=== PATIENT | female | born 1955 | race Caucasian/White ===

== ENCOUNTER 2016-09-04 09:55 | Emergency (ER) | payer MEDICARE ==
[~2016-09-04] VITALS: Ht 162.6 cm; Wt 56.6 kg
[2016-09-04 10:01] VITALS: BP 133/92
[2016-09-04] MEDS ORDERED: HYDROmorphone 1 MG/ML, 1ML ONE (10:23)
[2016-09-04] MEDS ORDERED: ONDANSETRON ODT 4 MG ONE (10:23)
[2016-09-04] MEDS ORDERED: HYDROmorphone 1 MG/ML, 1ML IM ONE (10:30)
[2016-09-04] MEDS ORDERED: ONDANSETRON ODT 4 MG PO ONE (10:30)
[2016-09-04] MEDS ORDERED: BACITRACIN ZINC OINT 500U/GM, 0.9 GM ONE (11:32)
== END 2016-09-04 11:48 | disposition home or self-care (01) ==
LOC: ED 11:44
DX: S80.02XA Contusion of left knee, initial encounter (principal); S80.01XA Contusion of right knee, initial encounter; S70.01XA Contusion of right hip, initial encounter; S60.221A Contusion of right hand, initial encounter; J44.9 Chronic obstructive pulmonary disease, unspecified; E78.5 Hyperlipidemia, unspecified; W18.30XA Fall on same level, unspecified, initial encounter; Y93.89 Activity, other specified; Y92.89 Other specified places as the place of occurrence of the external cause; Y99.9 Unspecified external cause status
CPT/HCPCS: 73130; 73502; 73564; 96372; 99284; J1170; Q0162

== ENCOUNTER → 2016-09-04 | Outpatient (CLI) | payer MEDICARE ==
[~2016-09-04] MED LIST: ACET-1757 PO; ACET650S12 PO; ACID1GRA2 PO; ALBU8.5H3 INH; ALEN70TA3 PO; AMIT50TA PO; AMOX-291 PO; AMOX-367 PO; ASPI325T4 PO; ASPI325T80 PO; BISA10SU54 PR; CALC-112 PO; CALC300T5 PO; CEFU500T PO; CYCL-259 PO; DIAZ10TA PO; DOCU-30 PO; ENOX30SY4 SQ; ERGO500017 PO; GABA100C8 PO; HYDR-3138 PO; HYDR-3307 PO; Hydrocodone Bit/Acetaminophen PO; LEVO500T33 PO; LORA-445 PO; LORA-446 PO; MAGN400T26 PO; METR500T4 PO; MORP15TA3 PO; MORP30TA3 PO; MULT-750 PO; NICO1PAT5 TD; OMEP-110 PO; ONDA4TAB7 PO; OXYC10TA6 PO; OXYC5TAB3 PO; PANT40TA3 PO; POLY17PO5 PO; POTA10TA11 PO; PRED10TA PO; SENN1TAB7 PO; THIA100T6 PO; TRAM-28 PO; TRAZ100T15 PO; VENL75CA PO
== END | disposition home or self-care (01) ==
LOC: CFH 08:23
PROVIDERS: ATTEND Nurse Practitioner
DX: Z12.31 Encounter for screening mammogram for malignant neoplasm of breast (principal); M81.0 Age-related osteoporosis without current pathological fracture
CPT/HCPCS: 77080; G0202

== ENCOUNTER 2016-10-21 13:29 | Emergency (ER) | payer MEDICARE, OTHER ==
[~2016-10-21] VITALS: Ht 160 cm; Wt 57.0 kg
[~2016-10-21 13:29] MED LIST changes: +GABA-826 PO; -GABA100C8 PO
[2016-10-21 13:31] VITALS: BP 132/92
[2016-10-21] MEDS ORDERED: OXYcodone/APAP 5/325MG TABLET PO ONE (14:00)
[2016-10-21] MEDS ORDERED: BACITRACIN ZINC OINT 500U/GM, 0.9 GM ONE (14:03)
[2016-10-21] MEDS ORDERED: OXYcodone/APAP 5/325MG TABLET ONE (14:03)
== END 2016-10-21 15:11 | disposition home or self-care (01) ==
LOC: ED 15:05
DX: S82.54XA Nondisplaced fracture of medial malleolus of right tibia, initial encounter for closed fracture (principal); X58.XXXA Exposure to other specified factors, initial encounter; Y93.89 Activity, other specified; Y92.89 Other specified places as the place of occurrence of the external cause; Y99.8 Other external cause status
CPT/HCPCS: 29515

== ENCOUNTER 2016-10-22 00:49 | Emergency (ER) | payer MEDICARE, OTHER ==
[~2016-10-22] VITALS: Ht 162.6 cm; Wt 25.6 kg
[2016-10-22 00:50] VITALS: BP 127/86
== END 2016-10-22 02:19 | disposition home or self-care (01) ==
LOC: ED 02:07
DX: S50.01XA Contusion of right elbow, initial encounter (principal); S90.32XA Contusion of left foot, initial encounter; S90.02XA Contusion of left ankle, initial encounter; F11.10 Opioid abuse, uncomplicated; V09.9XXA Pedestrian injured in unspecified transport accident, initial encounter; Y93.89 Activity, other specified; Y92.89 Other specified places as the place of occurrence of the external cause; Y99.8 Other external cause status
CPT/HCPCS: 99284

== ENCOUNTER 2016-12-23 10:35 | Emergency (ER) | payer MEDICARE ==
[~2016-12-23] VITALS: Ht 162.6 cm; Wt 55.7 kg
[2016-12-23] MEDS ORDERED: SODIUM CHLORIDE 0.9% 1,000 ML IV ONE (10:58)
[2016-12-23] MEDS ORDERED: SODIUM CHLORIDE 0.9% 1,000ML IVBOLUS ONE (11:00)
[2016-12-23 11:35] LABS: HEMATOCRIT 52.5 % (34.6-47.8); HEMOGLOBIN 17.3 g/dL (11.7-16.4); WHITE BLOOD COUNT 11.8 x10^3/uL (3.4-10)
[2016-12-23 11:47] LABS: BLOOD UREA NITROGEN 10 mg/dL (7-18)
[2016-12-23 11:50] LABS: ASPARTATE AMINO TRANSFERASE 25 U/L (15-37)
[2016-12-23] MEDS ORDERED: OMNIPAQUE 350 MG/ML, 100ML BOTTLE ONE (12:55)
[2016-12-23] MEDS ORDERED: HYDROmorphone 1 MG/ML, 1ML IVPush PRN (13:00)
[2016-12-23] MEDS ORDERED: ONDANSETRON 2MG/ML, 2ML IVPush ONE (13:00)
[2016-12-23] MEDS ORDERED: HYDROmorphone 1 MG/ML, 1ML ONE (13:16)
[2016-12-23] MEDS ORDERED: ONDANSETRON 2MG/ML, 2ML ONE (13:16)
[2016-12-23 15:00] VITALS: BP 162/74
== END 2016-12-23 15:18 | disposition home or self-care (01) ==
LOC: ED 12:52
DX: R19.7 Diarrhea, unspecified (principal); J44.9 Chronic obstructive pulmonary disease, unspecified; E78.5 Hyperlipidemia, unspecified; F10.20 Alcohol dependence, uncomplicated
CPT/HCPCS: 36415; 71010; 74177; 80053; 83690; 85025; 87081; 87880; 96361; 96374; 96375; 99285; J1170; J2405; J7030; Q9967

== ENCOUNTER 2017-01-23 21:17 | Emergency (ER) | payer MEDICARE ==
[~2017-01-23] VITALS: Ht 160 cm; Wt 55.9 kg
[~2017-01-23 21:17] MED LIST changes: -ACID1GRA2 PO; +ACID1GRA3 PO; -ALBU8.5H3 INH; +ALBU8.5H8 INH; +ASPI325T17 PO; -ASPI325T4 PO; +DOCU-131 PO; -DOCU-30 PO; -HYDR-3138 PO; +HYDR-3237 PO; -LEVO500T33 PO; +LEVO500T47 PO; -METR500T4 PO; +METR500T8 PO; +NICO1PAT16 TD; -NICO1PAT5 TD; -TRAM-28 PO; +TRAM-47 PO
[2017-01-23] MEDS ORDERED: PANTOPRAZOLE 40 MG IV IVPush ONE (22:00)
[2017-01-23] MEDS ORDERED: ONDANSETRON 2MG/ML, 2ML IVPush ONE (22:00)
[2017-01-23] MEDS ORDERED: SODIUM CHLORIDE 0.9% 1,000ML IVBOLUS ONE (22:00)
[2017-01-23] MEDS ORDERED: SODIUM CHLORIDE FLUSH 10ML SYR IVF ONE (22:00)
[2017-01-23] MEDS ORDERED: MORPHINE SULFATE 4 MG/ML, 1ML IVPush PRN (22:00)
[2017-01-23] MEDS ORDERED: ONDANSETRON 2MG/ML, 2ML ONE (22:02)
[2017-01-23] MEDS ORDERED: MORPHINE SULFATE 4 MG/ML, 1ML ONE (22:02)
[2017-01-23 22:09] LABS: HEMATOCRIT 59.9 % (34.6-47.8); HEMOGLOBIN 20.1 g/dL (11.7-16.4); WHITE BLOOD COUNT 10.1 x10^3/uL (3.4-10)
[2017-01-23] MEDS ORDERED: PANTOPRAZOLE 40 MG IV ONE (22:18)
[2017-01-23 22:21] LABS: ASPARTATE AMINO TRANSFERASE 21 U/L (15-37); BLOOD UREA NITROGEN 11 mg/dL (7-18)
[2017-01-23 23:12] VITALS: BP 145/102
[2017-01-23 23:28] LABS: PATH.CAST-FLAG NOT PRESENT; SPERM-FLAG NOT PRESENT; SRC-FLAG NOT PRESENT; XTAL-FLAG NOT PRESENT; YLC-FLAG NOT PRESENT
== END 2017-01-24 00:32 | disposition home or self-care (01) ==
LOC: ED 22:13
DX: K29.20 Alcoholic gastritis without bleeding (principal); N30.01 Acute cystitis with hematuria; K62.5 Hemorrhage of anus and rectum; J44.9 Chronic obstructive pulmonary disease, unspecified; E78.5 Hyperlipidemia, unspecified
CPT/HCPCS: 36415; 80053; 80307; 81001; 83690; 85025; 85610; 85730; 86677; 86850; 86900; 87086; 96361; 96374; 96375; 99284; C9113; J2405; J7030; G0479

== ENCOUNTER 2017-02-19 01:27 | Emergency (ER) | payer MEDICARE ==
[~2017-02-19] VITALS: Ht 162.6 cm; Wt 56.8 kg
[~2017-02-19 01:27] MED LIST changes: +NICO-487 TD; -NICO1PAT16 TD
[2017-02-19 01:28] VITALS: BP 110/79
[2017-02-19] MEDS ORDERED: SODIUM CHLORIDE 0.9% 1,000ML IVBOLUS ONE (02:00)
[2017-02-19] MEDS ORDERED: ONDANSETRON 2MG/ML, 2ML IVPush ONE (02:00)
[2017-02-19] MEDS ORDERED: MAALOX/HYOSCYAMINE/LIDOCAINE 45 ML BTL PO ONE (02:00)
[2017-02-19] MEDS ORDERED: FAMOTIDINE 20 MG/2 ML IVP ONE (02:00)
[2017-02-19] MEDS ORDERED: SODIUM CHLORIDE FLUSH 10ML SYR IVF ONE (02:00)
[2017-02-19 02:12] LABS: HEMATOCRIT 47.9 % (34.6-47.8); HEMOGLOBIN 16.3 g/dL (11.7-16.4); WHITE BLOOD COUNT 10.1 x10^3/uL (3.4-10)
[2017-02-19 02:22] LABS: BLOOD UREA NITROGEN 8 mg/dL (7-18)
[2017-02-19] MEDS ORDERED: ACETAMINOPHEN 325 MG TABLET PO ONE (03:00)
== END 2017-02-19 03:05 | disposition left against medical advice (07) ==
LOC: ED 02:48
DX: M25.512 Pain in left shoulder (principal); R19.7 Diarrhea, unspecified; F10.229 Alcohol dependence with intoxication, unspecified; J44.9 Chronic obstructive pulmonary disease, unspecified; E78.5 Hyperlipidemia, unspecified; Z88.8 Allergy status to other drugs, medicaments and biological substances
CPT/HCPCS: 36415; 80048; 80307; 85025; 99285; G0479

== ENCOUNTER 2017-05-01 14:42 | Emergency (ER) | payer MEDICARE ==
[~2017-05-01] VITALS: Ht 162.6 cm; Wt 57.7 kg
[2017-05-01 17:32] LABS: MICROSCOPIC AUTO
[2017-05-01 17:36] LABS: CULTURE INDICATED? YES
[2017-05-01 17:42] LABS: BASOPHILS # (AUTO) 0.06 x10^3/uL (0-0.1); BASOPHILS % (AUTO) 1 % (0-1); EOSINOPHILS # (AUTO) 0.31 x10^3/uL (0-0.4); EOSINOPHILS % (AUTO) 3 % (1-7); LYMPHOCYTES # (AUTO) 2.82 x10^3/uL (1-3.4); LYMPHOCYTES % (AUTO) 29 % (22-44); MD NO; MEAN CORPUSCULAR HEMOGLOBIN 31.5 pg (27.0-34.8); MEAN CORPUSCULAR HGB CONC 33.5 g/dL (32.4-35.8); MEAN PLATELET VOLUME 8.4 fL (7.4-10.4); MONOCYTES # (AUTO) 0.76 x10^3/uL (0.2-0.8); MONOCYTES % (AUTO) 8 % (2-9); NEUTROPHILS # (AUTO) 5.71 x10^3/uL (1.8-6.8); NEUTROPHILS % (AUTO) 59 % (42-75); PLATELET COUNT 330 x10^3/uL (130-400); RED BLOOD COUNT 5.24 x10^6/uL (3.82-5.3); RED CELL DISTRIBUTION WIDTH 15.2 % (9.6-15.2)
[2017-05-01 17:51] LABS: ALANINE AMINOTRANSFERASE 22 U/L (12-78); ALBUMIN 3.8 g/dL (3.4-5.0); ANION GAP 7 mmol/L (5-15); CHLORIDE 106 mmol/L (98-107); CREATININE 0.72 mg/dL (0.55-1.02)
[2017-05-01 17:53] LABS: ALKALINE PHOSPHATASE 95 U/L (45-117); BILIRUBIN,TOTAL 0.4 mg/dL (0.2-1.0); TOTAL PROTEIN 8.2 g/dL (6.4-8.2)
[2017-05-01 18:13] VITALS: BP 161/85
== END 2017-05-01 18:33 | disposition home or self-care (01) ==
LOC: ED 16:45
DX: B37.2 Candidiasis of skin and nail (principal); L30.9 Dermatitis, unspecified; N30.00 Acute cystitis without hematuria; E78.5 Hyperlipidemia, unspecified; J44.9 Chronic obstructive pulmonary disease, unspecified; M81.0 Age-related osteoporosis without current pathological fracture; F17.210 Nicotine dependence, cigarettes, uncomplicated
CPT/HCPCS: 36415; 80053; 81001; 85025; 87086; 99284

== ENCOUNTER 2017-06-03 10:43 | Emergency (ER) | payer MEDICARE ==
[~2017-06-03] VITALS: Ht 162.6 cm; Wt 52.0 kg
[2017-06-03] MEDS ORDERED: HYDR-3245 PO (11:40)
[2017-06-03] MEDS ORDERED: POTA99TA8 PO (11:40)
[2017-06-03] MEDS ORDERED: BIOT5TAB PO (11:40)
[2017-06-03] MEDS ORDERED: PANT40TA3 PO (11:40)
[2017-06-03] MEDS ORDERED: CALC-451 PO (11:40)
[2017-06-03] MEDS ORDERED: ASCO100019 PO (11:40)
[2017-06-03] MEDS ORDERED: GABA300C10 PO (11:40)
[2017-06-03] MEDS ORDERED: ALBUTEROL/IPRATROPIUM 2.5MG/0.5MG, 3 ML ONE ×2 (11:52→13:42)
[2017-06-03] MEDS ORDERED: ALBUTEROL/IPRATROPIUM 2.5MG/0.5MG, 3 ML NPPB ONE ×2 (12:00→13:30)
[2017-06-03] MEDS ORDERED: SODIUM CHLORIDE FLUSH 10ML SYR IVF ONE (12:00)
[2017-06-03] MEDS ORDERED: SODIUM CHLORIDE 0.9% 1,000ML IVBOLUS ONE (12:00)
[2017-06-03] MEDS ORDERED: methylPREDNISolone SOD SUCC 125 MG/2 ML IVP ONE (12:00)
[2017-06-03] MEDS ORDERED: LORazepam 2 MG/ML, 1ML IVPush ONE (12:00)
[2017-06-03] MEDS ORDERED: LORazepam 2 MG/ML, 1ML ONE (12:09)
[2017-06-03] MEDS ORDERED: methylPREDNISolone SOD SUCC 125 MG/2 ML ONE (12:09)
[2017-06-03 12:17] LABS: BASOPHILS # (AUTO) 0.07 x10^3/uL (0-0.1); BASOPHILS % (AUTO) 1 % (0-1); EOSINOPHILS # (AUTO) 0.29 x10^3/uL (0-0.4); EOSINOPHILS % (AUTO) 3 % (1-7); LYMPHOCYTES # (AUTO) 2.15 x10^3/uL (1-3.4); LYMPHOCYTES % (AUTO) 24 % (22-44); MD NO; MEAN CORPUSCULAR HEMOGLOBIN 31.9 pg (27.0-34.8); MEAN CORPUSCULAR HGB CONC 33.9 g/dL (32.4-35.8); MONOCYTES # (AUTO) 0.78 x10^3/uL (0.2-0.8); MONOCYTES % (AUTO) 9 % (2-9); NEUTROPHILS # (AUTO) 5.79 x10^3/uL (1.8-6.8); NEUTROPHILS % (AUTO) 64 % (42-75); PLATELET COUNT 334 x10^3/uL (130-400); RED BLOOD COUNT 4.94 x10^6/uL (3.82-5.3); RED CELL DISTRIBUTION WIDTH 15.7 % (9.6-15.2)
[2017-06-03 12:26] LABS: ALBUMIN 3.7 g/dL (3.4-5.0); ANION GAP 8 mmol/L (5-15); CALCIUM 9.4 mg/dL (8.5-10.1); CHLORIDE 107 mmol/L (98-107); CREATININE 0.75 mg/dL (0.55-1.02)
[2017-06-03] MEDS ORDERED: KETOROLAC 30 MG/1 ML ONE (13:23)
[2017-06-03] MEDS ORDERED: KETOROLAC 30 MG/1 ML IVPush ONE (13:30)
[2017-06-03 14:50] VITALS: BP 115/76
== END 2017-06-03 14:54 | disposition home or self-care (01) ==
LOC: ED 11:39
DX: J44.1 Chronic obstructive pulmonary disease with (acute) exacerbation (principal); E78.5 Hyperlipidemia, unspecified; F10.20 Alcohol dependence, uncomplicated
CPT/HCPCS: 36415; 71046; 80048; 82040; 85025; 93005; 94640; 96361; 96374; 96375; 99285; J1885; J2060; J2930; J7030; J7620

== ENCOUNTER → 2017-07-23 | Outpatient (CLI) | payer MEDICARE ==
[~2017-07-23] MED LIST changes: +AMIT75TA PO; +ASCO100019 PO; +BIOT5TAB PO; +CALC-451 PO; +GABA300C10 PO; +HYDR-3245 PO; +POTA99TA8 PO
== END | disposition home or self-care (01) ==
LOC: RAD 16:34
PROVIDERS: ATTEND Nurse Practitioner Family
DX: R06.02 Shortness of breath (principal); R09.02 Hypoxemia; R07.9 Chest pain, unspecified; F41.9 Anxiety disorder, unspecified; R22.43 Localized swelling, mass and lump, lower limb, bilateral; R63.5 Abnormal weight gain
CPT/HCPCS: 71046

== ENCOUNTER 2017-10-20 13:45 | Emergency (ER) | payer MEDICARE, OTHER ==
[~2017-10-20] VITALS: Ht 162.6 cm; Wt 59.3 kg
[2017-10-20] MEDS ORDERED: morphine SULFATE 10 MG/ML, 1ML IVPush ONE (15:00)
[2017-10-20 15:06] LABS: BASOPHILS # (AUTO) 0.05 x10^3/uL (0-0.1); BASOPHILS % (AUTO) 1 % (0-1); EOSINOPHILS # (AUTO) 0.26 x10^3/uL (0-0.4); EOSINOPHILS % (AUTO) 3 % (1-7); LYMPHOCYTES # (AUTO) 1.32 x10^3/uL (1-3.4); LYMPHOCYTES % (AUTO) 16 % (22-44); MD NO; MEAN CORPUSCULAR HEMOGLOBIN 33.4 pg (27.0-34.8); MEAN CORPUSCULAR VOLUME 98.2 fL (80-100); MEAN PLATELET VOLUME 7.9 fL (7.4-10.4); MONOCYTES # (AUTO) 0.65 x10^3/uL (0.2-0.8); MONOCYTES % (AUTO) 8 % (2-9); NEUTROPHILS # (AUTO) 5.94 x10^3/uL (1.8-6.8); NEUTROPHILS % (AUTO) 72 % (42-75); PLATELET COUNT 294 x10^3/uL (130-400); RED BLOOD COUNT 4.87 x10^6/uL (3.82-5.3); RED CELL DISTRIBUTION WIDTH 16.3 % (9.6-15.2)
[2017-10-20 15:15] LABS: ALBUMIN 3.4 g/dL (3.4-5.0); ANION GAP 7 mmol/L (5-15); CALCIUM 9.1 mg/dL (8.5-10.1); CHLORIDE 107 mmol/L (98-107); CREATININE 0.67 mg/dL (0.55-1.02)
[2017-10-20 15:22] LABS: PROTHROMBIN TIME 10.3 Seconds (9.6-11.5)
[2017-10-20] MEDS ORDERED: MORPHINE SULFATE 4 MG/ML, 1ML ONE (15:31)
[2017-10-20] MEDS ORDERED: DIPHENHYDRAMINE 25 MG CAPSULE ONE (15:59)
[2017-10-20] MEDS ORDERED: DIPHENHYDRAMINE 25 MG CAPSULE PO ONE (16:30)
[2017-10-20 16:55] VITALS: BP 130/79
== END 2017-10-20 17:05 | disposition home or self-care (01) ==
LOC: ED 15:28
DX: L03.116 Cellulitis of left lower limb (principal); L40.1 Generalized pustular psoriasis; J44.9 Chronic obstructive pulmonary disease, unspecified
CPT/HCPCS: 36415; 80048; 82040; 85025; 85610; 93971; 96374; 99285; J2270; Q0163

== ENCOUNTER 2018-01-25 14:24 | Emergency (ER) | payer MEDICARE, OTHER ==
[~2018-01-25] VITALS: Ht 160 cm; Wt 56.8 kg
[~2018-01-25 14:24] MED LIST changes: -SENN1TAB7 PO; +SENN1TAB8 PO; -THIA100T6 PO; +THIA100T67 PO; +TRAZ-137 PO; -TRAZ100T15 PO
[2018-01-25] MEDS ORDERED: LORazepam 1MG TABLET ONE (15:08)
[2018-01-25 15:24] LABS: BASOPHILS # (AUTO) 0.07 x10^3/uL (0-0.1); BASOPHILS % (AUTO) 1 % (0-1); EOSINOPHILS # (AUTO) 0.05 x10^3/uL (0-0.4); EOSINOPHILS % (AUTO) 1 % (1-7); LYMPHOCYTES # (AUTO) 2.16 x10^3/uL (1-3.4); LYMPHOCYTES % (AUTO) 25 % (22-44); MD NO; MEAN CORPUSCULAR HEMOGLOBIN 32.8 pg (27.0-34.8); MEAN CORPUSCULAR HGB CONC 33.8 g/dL (32.4-35.8); MEAN CORPUSCULAR VOLUME 97.1 fL (80-100); MONOCYTES # (AUTO) 0.99 x10^3/uL (0.2-0.8); MONOCYTES % (AUTO) 11 % (2-9); NEUTROPHILS # (AUTO) 5.39 x10^3/uL (1.8-6.8); NEUTROPHILS % (AUTO) 62 % (42-75); PLATELET COUNT 326 x10^3/uL (130-400); RED BLOOD COUNT 4.81 x10^6/uL (3.82-5.3)
[2018-01-25] MEDS ORDERED: SODIUM CHLORIDE FLUSH 10ML SYR IVF ONE (15:30)
[2018-01-25] MEDS ORDERED: LORazepam 1MG TABLET PO ONE (15:30)
[2018-01-25] MEDS ORDERED: SODIUM CHLORIDE 0.9% 1,000ML IVBOLUS ONE (15:30)
[2018-01-25 15:33] LABS: ALANINE AMINOTRANSFERASE 20 U/L (12-78); ALBUMIN 3.8 g/dL (3.4-5.0); ANION GAP 13 mmol/L (5-15); CALCIUM 8.7 mg/dL (8.5-10.1); CHLORIDE 97 mmol/L (98-107); CREATININE 0.68 mg/dL (0.55-1.02)
[2018-01-25 15:35] LABS: ALKALINE PHOSPHATASE 116 U/L (45-117); BILIRUBIN,TOTAL 0.6 mg/dL (0.2-1.0)
[2018-01-25 16:31] VITALS: BP 115/96
== END 2018-01-25 16:53 | disposition home or self-care (01) ==
LOC: ED 16:17
DX: F41.1 Generalized anxiety disorder (principal); M16.11 Unilateral primary osteoarthritis, right hip; F17.210 Nicotine dependence, cigarettes, uncomplicated; F10.20 Alcohol dependence, uncomplicated; J44.9 Chronic obstructive pulmonary disease, unspecified; M81.0 Age-related osteoporosis without current pathological fracture; L40.9 Psoriasis, unspecified; E78.5 Hyperlipidemia, unspecified; R41.3 Other amnesia; R21 Rash and other nonspecific skin eruption; Z79.899 Other long term (current) drug therapy
CPT/HCPCS: 36415; 73502; 80053; 80307; 85025; 93005; 99285; J7030

== ENCOUNTER 2018-01-31 09:53 | Inpatient (IN) | payer MEDICARE, OTHER ==
[~2018-01-31] VITALS: Ht 160 cm; Wt 64.9 kg
[2018-01-31] MEDS ORDERED: SODIUM CHLORIDE 0.9% 1,000 ML IV ONE (11:07)
[2018-01-31] MEDS ORDERED: MORPHINE SULFATE 4 MG/ML, 1ML IVPush ONE ×2 (11:30→13:30)
[2018-01-31] MEDS ORDERED: methylPREDNISolone SOD SUCC 125 MG/2 ML IVPush ONE (11:30)
[2018-01-31] MEDS ORDERED: VANCOMYCIN PER PHARMACY IV ONE (11:30)
[2018-01-31] MEDS ORDERED: AMPICILLIN/SULBACTAM 3 GM in SODIUM CHLORIDE 0.9% 100 ML IV ONE (11:30)
[2018-01-31] MEDS ORDERED: methylPREDNISolone SOD SUCC 125 MG/2 ML ONE (11:32)
[2018-01-31] MEDS ORDERED: MORPHINE SULFATE 4 MG/ML, 1ML ONE ×2 (11:32→13:29)
[2018-01-31] MEDS ORDERED: VANCOMYCIN 1,100 MG in SODIUM CHLORIDE 0.9% 250 ML IV ONE (12:00)
[2018-01-31 12:01] LABS: HCT (SEDRATE) 44.4 % (34.6-47.8)
[2018-01-31 12:04] LABS: BASOPHILS # (AUTO) 0.13 x10^3/uL (0-0.1); BASOPHILS % (AUTO) 1 % (0-1); EOSINOPHILS # (AUTO) 0.39 x10^3/uL (0-0.4); EOSINOPHILS % (AUTO) 3 % (1-7); LYMPHOCYTES # (AUTO) 1.91 x10^3/uL (1-3.4); LYMPHOCYTES % (AUTO) 14 % (22-44); MD NO; MEAN CORPUSCULAR HEMOGLOBIN 33.3 pg (27.0-34.8); MEAN CORPUSCULAR HGB CONC 33.4 g/dL (32.4-35.8); MEAN CORPUSCULAR VOLUME 99.9 fL (80-100); MEAN PLATELET VOLUME 8.9 fL (7.4-10.4); MONOCYTES # (AUTO) 1.01 x10^3/uL (0.2-0.8); MONOCYTES % (AUTO) 7 % (2-9); NEUTROPHILS # (AUTO) 10.66 x10^3/uL (1.8-6.8); NEUTROPHILS % (AUTO) 76 % (42-75); PLATELET COUNT 280 x10^3/uL (130-400); RED BLOOD COUNT 4.45 x10^6/uL (3.82-5.3); RED CELL DISTRIBUTION WIDTH 14.8 % (9.6-15.2)
[2018-01-31 12:06] LABS: ALANINE AMINOTRANSFERASE 21 U/L (12-78); ALBUMIN 3.6 g/dL (3.4-5.0); CHLORIDE 103 mmol/L (98-107); CREATININE 0.55 mg/dL (0.55-1.02)
[2018-01-31 12:55] LABS: ANION GAP 10 mmol/L (5-15); CALCIUM 8.9 mg/dL (8.5-10.1)
[2018-01-31 13:04] LABS: ALKALINE PHOSPHATASE 118 U/L (45-117); BILIRUBIN,TOTAL 0.4 mg/dL (0.2-1.0)
[2018-01-31] MEDS ORDERED: ACETAMINOPHEN 325 MG TABLET PO PRN (14:30)
[2018-01-31] MEDS ORDERED: ONDANSETRON 2MG/ML, 2ML IVPush PRN (14:30)
[2018-01-31] MEDS: HEPARIN 5,000 UNITS/ML, 1ML SQ SCH ×2 (15:00→23:00)
[2018-01-31] MEDS ORDERED: SODIUM CHLORIDE 0.9% 1,000 ML IV SCH (15:00)
[2018-01-31 15:08] VITALS: BP 131/85
[2018-01-31] MEDS: DOXYCYCLINE 100 MG in DEXTROSE 5% 250 ML IV SCH (15:39)
[2018-01-31] MEDS: HYDROcodone/APAP 5/325 TABLET PO PRN ×2 (15:40→20:08)
[2018-01-31] MEDS: NICOTINE 7 MG/24 HR PATCH.TD24 TD SCH (15:40)
[2018-01-31] MEDS: morphine SULFATE 10 MG/ML, 1ML IVPush PRN (17:14)
[2018-01-31] MEDS: AMPICILLIN/SULBACTAM 1,500 MG in SODIUM CHLORIDE 0.9% 50 ML IV SCH ×2 (17:19→23:37)
[2018-01-31] MEDS: INSULIN LISPRO 100 UNITS/ML, PEN SQ-INSULIN SCH ×2 (17:19→21:05)
[2018-01-31 19:23] VITALS: BP 135/81
[2018-01-31] MEDS: methylPREDNISolone SOD SUCC 125 MG/2 ML IVPush SCH (20:08)
[2018-02-01 01:25] VITALS: BP 150/89
[2018-02-01] MEDS: morphine SULFATE 10 MG/ML, 1ML IVPush PRN ×6 (02:05→21:07)
[2018-02-01] MEDS: HYDROcodone/APAP 5/325 TABLET PO PRN ×3 (02:05→16:36)
[2018-02-01] MEDS: methylPREDNISolone SOD SUCC 125 MG/2 ML IVPush SCH ×4 (03:06→21:07)
[2018-02-01] MEDS: DOXYCYCLINE 100 MG in DEXTROSE 5% 250 ML IV SCH ×2 (03:06→16:35)
[2018-02-01 04:50] LABS: BASOPHILS % (AUTO) 0 % (0-1); EOSINOPHILS % (AUTO) 0 % (1-7); LYMPHOCYTES # (AUTO) 0.65 x10^3/uL (1-3.4); LYMPHOCYTES % (AUTO) 10 % (22-44); MD NO; MEAN CORPUSCULAR HEMOGLOBIN 32.7 pg (27.0-34.8); MEAN CORPUSCULAR VOLUME 99.1 fL (80-100); MEAN PLATELET VOLUME 8.9 fL (7.4-10.4); MONOCYTES # (AUTO) 0.07 x10^3/uL (0.2-0.8); MONOCYTES % (AUTO) 1 % (2-9); NEUTROPHILS # (AUTO) 5.54 x10^3/uL (1.8-6.8); NEUTROPHILS % (AUTO) 88 % (42-75); PLATELET COUNT 238 x10^3/uL (130-400); RED BLOOD COUNT 4.08 x10^6/uL (3.82-5.3)
[2018-02-01 04:59] LABS: ALANINE AMINOTRANSFERASE 16 U/L (12-78); ALBUMIN 2.7 g/dL (3.4-5.0); ANION GAP 11 mmol/L (5-15); CALCIUM 8.1 mg/dL (8.5-10.1); CHLORIDE 108 mmol/L (98-107); CREATININE 0.61 mg/dL (0.55-1.02)
[2018-02-01 05:01] LABS: ALKALINE PHOSPHATASE 95 U/L (45-117); BILIRUBIN,TOTAL 0.2 mg/dL (0.2-1.0); TOTAL PROTEIN 6.7 g/dL (6.4-8.2)
[2018-02-01] MEDS: AMPICILLIN/SULBACTAM 1,500 MG in SODIUM CHLORIDE 0.9% 50 ML IV SCH ×4 (05:39→23:50)
[2018-02-01] MEDS: INSULIN LISPRO 100 UNITS/ML, PEN SQ-INSULIN SCH ×4 (07:00→21:00)
[2018-02-01] MEDS: HEPARIN 5,000 UNITS/ML, 1ML SQ SCH ×3 (07:00→23:00)
[2018-02-01 08:08] VITALS: BP 169/102
[2018-02-01 13:10] VITALS: BP 142/90
[2018-02-01] MEDS ORDERED: SODIUM CHLORIDE 0.9% 1,000 ML IV SCH (15:00)
[2018-02-01] MEDS: NICOTINE 7 MG/24 HR PATCH.TD24 TD SCH (16:36)
[2018-02-01 20:00] VITALS: BP 166/88
[2018-02-01 23:50] VITALS: BP 180/87
[2018-02-01] MEDS: LABETALOL 5MG/ML, 20ML IVPush PRN (23:57)
[2018-02-02] VITALS (8 sets, daily range): BP systolic 137–196; BP diastolic 84–107
[2018-02-02] MEDS: morphine SULFATE 10 MG/ML, 1ML IVPush PRN ×5 (00:29→20:18)
[2018-02-02] MEDS: methylPREDNISolone SOD SUCC 125 MG/2 ML IVPush SCH ×3 (02:59→20:18)
[2018-02-02] MEDS: DOXYCYCLINE 100 MG in DEXTROSE 5% 250 ML IV SCH (04:17)
[2018-02-02] MEDS: LABETALOL 5MG/ML, 20ML IVPush PRN ×2 (05:41→20:19)
[2018-02-02 05:46] LABS: BASOPHILS # (AUTO) 0.01 x10^3/uL (0-0.1); BASOPHILS % (AUTO) 0 % (0-1); EOSINOPHILS % (AUTO) 0 % (1-7); LYMPHOCYTES # (AUTO) 0.59 x10^3/uL (1-3.4); LYMPHOCYTES % (AUTO) 6 % (22-44); MD NO; MEAN CORPUSCULAR HEMOGLOBIN 32.7 pg (27.0-34.8); MEAN CORPUSCULAR HGB CONC 32.9 g/dL (32.4-35.8); MEAN CORPUSCULAR VOLUME 99.1 fL (80-100); MEAN PLATELET VOLUME 9.2 fL (7.4-10.4); MONOCYTES # (AUTO) 0.33 x10^3/uL (0.2-0.8); MONOCYTES % (AUTO) 3 % (2-9); NEUTROPHILS # (AUTO) 8.78 x10^3/uL (1.8-6.8); NEUTROPHILS % (AUTO) 90 % (42-75); PLATELET COUNT 301 x10^3/uL (130-400); RED BLOOD COUNT 4.15 x10^6/uL (3.82-5.3); RED CELL DISTRIBUTION WIDTH 15.4 % (9.6-15.2)
[2018-02-02 05:48] LABS: ALANINE AMINOTRANSFERASE 18 U/L (12-78); ANION GAP 11 mmol/L (5-15); CALCIUM 8.3 mg/dL (8.5-10.1); CHLORIDE 106 mmol/L (98-107); CREATININE 0.69 mg/dL (0.55-1.02)
[2018-02-02 05:50] LABS: ALKALINE PHOSPHATASE 87 U/L (45-117); BILIRUBIN,TOTAL 0.2 mg/dL (0.2-1.0)
[2018-02-02] MEDS: AUGMENTIN MC SCH ×3 (07:00→23:00)
[2018-02-02] MEDS: HEPARIN 5,000 UNITS/ML, 1ML SQ SCH ×3 (07:00→23:00)
[2018-02-02] MEDS: DOXY MC SCH ×3 (07:00→23:00)
[2018-02-02] MEDS: INSULIN LISPRO 100 UNITS/ML, PEN SQ-INSULIN SCH ×4 (08:08→20:19)
[2018-02-02] MEDS: POTASSIUM CHLORIDE 20 MEQ TAB.ER.PRT PO SCH ×3 (08:17→20:18)
[2018-02-02] MEDS: AMOXICILLIN/CLAV 875-125MG TABLET PO SCH ×2 (08:17→20:18)
[2018-02-02] MEDS: HYDROcodone/APAP 5/325 TABLET PO PRN ×2 (08:17→17:20)
[2018-02-02] MEDS: DOXYCYCLINE 100MG TABLET PO SCH ×2 (08:18→20:19)
[2018-02-02 08:38] LABS: HEMOGLOBIN A1C 5.1 % (4.2-6.3)
[2018-02-02] MEDS: NICOTINE 7 MG/24 HR PATCH.TD24 TD SCH (15:34)
[2018-02-02 17:35] LABS: ANION GAP 8 mmol/L (5-15); CHLORIDE 106 mmol/L (98-107)
[2018-02-02 17:37] LABS: CREATININE 0.69 mg/dL (0.55-1.02)
[2018-02-02] MEDS: hydrALAzine 20 MG/ML, 1ML IV PRN (21:05)
[2018-02-03] MEDS: morphine SULFATE 10 MG/ML, 1ML IVPush PRN ×5 (01:27→20:30)
[2018-02-03 03:16] VITALS: BP_SYST 174; BP_SYST 179; BP_DIAS 92; BP_DIAS 95
[2018-02-03 05:43] LABS: BASOPHILS # (AUTO) 0.01 x10^3/uL (0-0.1); BASOPHILS % (AUTO) 0 % (0-1); EOSINOPHILS % (AUTO) 0 % (1-7); LYMPHOCYTES # (AUTO) 0.72 x10^3/uL (1-3.4); LYMPHOCYTES % (AUTO) 7 % (22-44); MD NO; MEAN CORPUSCULAR HGB CONC 33.5 g/dL (32.4-35.8); MEAN CORPUSCULAR VOLUME 98.5 fL (80-100); MEAN PLATELET VOLUME 8.7 fL (7.4-10.4); MONOCYTES # (AUTO) 0.63 x10^3/uL (0.2-0.8); MONOCYTES % (AUTO) 6 % (2-9); NEUTROPHILS # (AUTO) 8.61 x10^3/uL (1.8-6.8); NEUTROPHILS % (AUTO) 86 % (42-75); PLATELET COUNT 340 x10^3/uL (130-400); RED BLOOD COUNT 4.61 x10^6/uL (3.82-5.3); RED CELL DISTRIBUTION WIDTH 15.7 % (9.6-15.2)
[2018-02-03 05:52] LABS: ALBUMIN 3.3 g/dL (3.4-5.0); ANION GAP 7 mmol/L (5-15); CALCIUM 9.4 mg/dL (8.5-10.1); CHLORIDE 105 mmol/L (98-107)
[2018-02-03 05:57] LABS: ALANINE AMINOTRANSFERASE 24 U/L (12-78); ALKALINE PHOSPHATASE 93 U/L (45-117); BILIRUBIN,TOTAL 0.2 mg/dL (0.2-1.0); CREATININE 0.59 mg/dL (0.55-1.02)
[2018-02-03] MEDS: INSULIN LISPRO 100 UNITS/ML, PEN SQ-INSULIN SCH ×3 (07:00→16:00)
[2018-02-03] MEDS: AUGMENTIN MC SCH ×3 (07:00→22:29)
[2018-02-03] MEDS: DOXY MC SCH ×3 (07:00→22:29)
[2018-02-03] MEDS: HEPARIN 5,000 UNITS/ML, 1ML SQ SCH ×3 (07:00→20:17)
[2018-02-03 07:22] VITALS: BP 182/108
[2018-02-03] MEDS: AMOXICILLIN/CLAV 875-125MG TABLET PO SCH (08:15)
[2018-02-03] MEDS: hydrALAzine 20 MG/ML, 1ML IV PRN (08:16)
[2018-02-03] MEDS: POTASSIUM CHLORIDE 20 MEQ TAB.ER.PRT PO SCH ×3 (08:16→20:28)
[2018-02-03] MEDS: methylPREDNISolone SOD SUCC 125 MG/2 ML IVPush SCH (08:16)
[2018-02-03] MEDS: HYDROcodone/APAP 5/325 TABLET PO PRN (08:16)
[2018-02-03] MEDS: DOXYCYCLINE 100MG TABLET PO SCH ×2 (08:17→20:28)
[2018-02-03 09:12] VITALS: BP 143/88
[2018-02-03] MEDS: GABAPENTIN 300 MG CAPSULE PO SCH ×2 (10:14→20:28)
[2018-02-03] MEDS ORDERED: CEPHALEXIN 500 MG CAPSULE PO SCH (11:00)
[2018-02-03 15:38] VITALS: BP 137/83
[2018-02-03] MEDS: NICOTINE 7 MG/24 HR PATCH.TD24 TD SCH (16:14)
[2018-02-03] MEDS: MINERA CRM, 60GM TP SCH ×2 (16:42→20:29)
[2018-02-03 19:16] VITALS: BP 128/82
[2018-02-03] MEDS: TACROLIMUS 0.1% TP SCH (21:00)
[2018-02-04 02:55] VITALS: BP 147/85
[2018-02-04] MEDS: HEPARIN 5,000 UNITS/ML, 1ML SQ SCH (04:26)
[2018-02-04] MEDS: morphine SULFATE 10 MG/ML, 1ML IVPush PRN ×2 (04:35→07:41)
[2018-02-04] MEDS: AUGMENTIN MC SCH (06:16)
[2018-02-04] MEDS: DOXY MC SCH (06:16)
[2018-02-04] MEDS ORDERED: DOXY100T PO (07:28)
[2018-02-04] MEDS: POTASSIUM CHLORIDE 20 MEQ TAB.ER.PRT PO SCH (07:42)
[2018-02-04] MEDS: DOXYCYCLINE 100MG TABLET PO SCH (07:44)
[2018-02-04] MEDS: GABAPENTIN 300 MG CAPSULE PO SCH (07:44)
[2018-02-04] MEDS: TACROLIMUS 0.1% TP SCH (07:45)
[2018-02-04] MEDS: MINERA CRM, 60GM TP SCH (07:45)
[2018-02-04 08:12] VITALS: BP 158/103
== END 2018-02-04 15:47 | disposition home or self-care (01) | DRG 603 ==
LOC: ED 11:30 → EDIP 13:11 → 3NE 14:15
PROVIDERS: ADMIT Internal Medicine; ATTEND Internal Medicine
DX: L03.115 Cellulitis of right lower limb (principal); L40.1 Generalized pustular psoriasis; L03.116 Cellulitis of left lower limb; M81.0 Age-related osteoporosis without current pathological fracture; T38.0X5A Adverse effect of glucocorticoids and synthetic analogues, initial encounter; Z96.642 Presence of left artificial hip joint; G89.29 Other chronic pain; D72.829 Elevated white blood cell count, unspecified; Z66 Do not resuscitate; J44.9 Chronic obstructive pulmonary disease, unspecified; F41.1 Generalized anxiety disorder; F10.20 Alcohol dependence, uncomplicated; Y90.9 Presence of alcohol in blood, level not specified; F32.9 Major depressive disorder, single episode, unspecified; F17.200 Nicotine dependence, unspecified, uncomplicated; Z60.2 Problems related to living alone; Z88.8 Allergy status to other drugs, medicaments and biological substances; M54.9 Dorsalgia, unspecified; R73.9 Hyperglycemia, unspecified; Y92.89 Other specified places as the place of occurrence of the external cause
CPT/HCPCS: 36415; 80048; 80053; 82962; 83036; 83605; 85025; 85651; 86140; 87040; 96365; 96367; 96375; G0378; J0295; J3370; J7060; J0360; J1815; J2270; J2930; J7030; J7050; J7512

== ENCOUNTER 2018-02-12 14:37 | Observation (INO) | payer MEDICARE, OTHER ==
[~2018-02-12] VITALS: Ht 160 cm; Wt 60.0 kg
[~2018-02-12 14:37] MED LIST changes: +DOXY100T PO
[2018-02-12] MEDS ORDERED: MORPHINE SULFATE 4 MG/ML, 1ML IV PRN (15:00)
[2018-02-12] MEDS ORDERED: SODIUM CHLORIDE FLUSH 10ML SYR IVF ONE ×2 (15:00→16:00)
[2018-02-12 15:22] LABS: BASOPHILS # (AUTO) 0.02 x10^3/uL (0-0.1); BASOPHILS % (AUTO) 0 % (0-1); EOSINOPHILS # (AUTO) 0.23 x10^3/uL (0-0.4); EOSINOPHILS % (AUTO) 2 % (1-7); LYMPHOCYTES # (AUTO) 1.53 x10^3/uL (1-3.4); LYMPHOCYTES % (AUTO) 13 % (22-44); MD NO; MEAN CORPUSCULAR HEMOGLOBIN 32.5 pg (27.0-34.8); MEAN CORPUSCULAR HGB CONC 33.5 g/dL (32.4-35.8); MONOCYTES # (AUTO) 0.69 x10^3/uL (0.2-0.8); MONOCYTES % (AUTO) 6 % (2-9); NEUTROPHILS # (AUTO) 9.15 x10^3/uL (1.8-6.8); NEUTROPHILS % (AUTO) 79 % (42-75); PLATELET COUNT 346 x10^3/uL (130-400); RED BLOOD COUNT 4.32 x10^6/uL (3.82-5.3); RED CELL DISTRIBUTION WIDTH 14.7 % (9.6-15.2)
[2018-02-12 15:30] LABS: ALANINE AMINOTRANSFERASE 27 U/L (12-78); ALBUMIN 3.2 g/dL (3.4-5.0); ANION GAP 9 mmol/L (5-15); CALCIUM 8.6 mg/dL (8.5-10.1); CHLORIDE 101 mmol/L (98-107); CREATININE 0.56 mg/dL (0.55-1.02)
[2018-02-12 15:32] LABS: ALKALINE PHOSPHATASE 132 U/L (45-117); BILIRUBIN,TOTAL 0.4 mg/dL (0.2-1.0); TOTAL PROTEIN 7.8 g/dL (6.4-8.2)
[2018-02-12] MEDS ORDERED: CLINDAMYCIN PMX 900MG/50ML 50 ML IVPB ONE (16:00)
[2018-02-12] MEDS ORDERED: SODIUM CHLORIDE 0.9% 1,000ML IVBOLUS ONE (16:00)
[2018-02-12] MEDS ORDERED: ONDANSETRON 2MG/ML, 2ML IVPush ONE (16:00)
[2018-02-12] MEDS ORDERED: VENL75TA PO (16:31)
[2018-02-12] MEDS ORDERED: GABA600T2 PO (16:31)
[2018-02-12] MEDS ORDERED: TRIAMCINOLONE OINT 0.1%, 15GM TP STA (16:41)
[2018-02-12] MEDS ORDERED: MORPHINE SULFATE 4 MG/ML, 1ML ONE (16:41)
[2018-02-12] MEDS ORDERED: ONDANSETRON 2MG/ML, 2ML ONE (16:41)
[2018-02-12] MEDS ORDERED: CLINDAMYCIN PMX 900MG/50ML 50 ML ONE (16:42)
[2018-02-12] MEDS ORDERED: ONDANSETRON 2MG/ML, 2ML IVPush PRN (18:00)
[2018-02-12] MEDS ORDERED: ONDANSETRON ODT 4 MG PO PRN (18:00)
[2018-02-12] MEDS ORDERED: LABETALOL 5MG/ML, 20ML IVPush PRN (18:00)
[2018-02-12] MEDS ORDERED: POLYETHYLENE GLYCOL 17 GM PACKET PO PRN (18:00)
[2018-02-12 18:11] LABS: HCT (SEDRATE) 41.9 % (34.6-47.8)
[2018-02-12 20:00] VITALS: BP 95/76
[2018-02-12] MEDS: [UNRECOGNIZED DRUG - REMARK] MC SCH (20:00)
[2018-02-12] MEDS: DOXYCYCLINE 100MG TABLET PO SCH (21:00)
[2018-02-12] MEDS: VENLAFAXINE 75MG TABLET PO SCH (21:00)
[2018-02-12] MEDS: AMITRIPTYLINE 75 MG TABLET PO SCH (21:00)
[2018-02-12] MEDS ORDERED: AMITRIPTYLINE 50 MG TABLET ONE (21:25)
[2018-02-12] MEDS ORDERED: VENLAFAXINE 50MG TABLET ONE (21:25)
[2018-02-12] MEDS ORDERED: AMITRIPTYLINE 25 MG TABLET ONE (21:25)
[2018-02-12] MEDS ORDERED: VENLAFAXINE 25MG TABLET ONE (21:25)
[2018-02-12] MEDS: AMPICILLIN/SULBACTAM 3 GM in SODIUM CHLORIDE 0.9% 100 ML IV SCH (21:33)
[2018-02-12] MEDS: methylPREDNISolone SOD SUCC 125 MG/2 ML IVPush SCH (21:33)
[2018-02-12] MEDS: HYDROcodone/APAP 10/325 MG TABLET PO SCH (21:36)
[2018-02-13 02:12] VITALS: BP 107/73
[2018-02-13] MEDS: methylPREDNISolone SOD SUCC 125 MG/2 ML IVPush SCH ×4 (03:07→20:54)
[2018-02-13] MEDS: AMPICILLIN/SULBACTAM 3 GM in SODIUM CHLORIDE 0.9% 100 ML IV SCH ×4 (03:07→20:56)
[2018-02-13] MEDS: [UNRECOGNIZED DRUG - REMARK] MC SCH (04:00)
[2018-02-13] MEDS: HYDROcodone/APAP 10/325 MG TABLET PO SCH ×4 (06:09→20:45)
[2018-02-13 06:22] LABS: MEAN CORPUSCULAR HEMOGLOBIN 32.4 pg (27.0-34.8); MEAN CORPUSCULAR VOLUME 98.3 fL (80-100); MEAN PLATELET VOLUME 8.1 fL (7.4-10.4); PLATELET COUNT 326 x10^3/uL (130-400); RED BLOOD COUNT 4.41 x10^6/uL (3.82-5.3); RED CELL DISTRIBUTION WIDTH 15.1 % (9.6-15.2)
[2018-02-13 06:44] LABS: ALANINE AMINOTRANSFERASE 40 U/L (12-78); ALBUMIN 3.2 g/dL (3.4-5.0); ANION GAP 11 mmol/L (5-15); CALCIUM 8.5 mg/dL (8.5-10.1); CHLORIDE 102 mmol/L (98-107); CREATININE 0.71 mg/dL (0.55-1.02)
[2018-02-13 06:45] VITALS: BP 115/75
[2018-02-13 06:54] LABS: ALKALINE PHOSPHATASE 140 U/L (45-117); BILIRUBIN,TOTAL 0.5 mg/dL (0.2-1.0); THYROID STIMULATING HORMONE 0.472 mIU/L (0.358-3.740); TOTAL PROTEIN 8.1 g/dL (6.4-8.2)
[2018-02-13 06:57] LABS: MD SCAN
[2018-02-13 06:58] LABS: BASOPHILS % (AUTO) 0 % (0-1); EOSINOPHILS % (AUTO) 0 % (1-7); LYMPHOCYTES # (AUTO) 0.32 x10^3/uL (1-3.4); LYMPHOCYTES % (AUTO) 3 % (22-44); MONOCYTES # (AUTO) 0.03 x10^3/uL (0.2-0.8); MONOCYTES % (AUTO) 0 % (2-9); NEUTROPHILS # (AUTO) 10.92 x10^3/uL (1.8-6.8); NEUTROPHILS % (AUTO) 97 % (42-75)
[2018-02-13] MEDS ORDERED: VENLAFAXINE 25MG TABLET ONE (08:46)
[2018-02-13] MEDS ORDERED: VENLAFAXINE 50MG TABLET ONE (08:46)
[2018-02-13] MEDS: SENNA/DOCUSATE TABLET PO SCH (08:56)
[2018-02-13] MEDS: VENLAFAXINE 75MG TABLET PO SCH ×2 (08:56→20:45)
[2018-02-13] MEDS: ASCORBIC ACID 500 MG TABLET PO SCH (08:57)
[2018-02-13] MEDS: NICOTINE 14MG/24 HR PATCH.TD24 TD SCH (08:58)
[2018-02-13] MEDS: PANTOPROZOLE 40MG TABLET PO SCH (08:58)
[2018-02-13] MEDS: DOXYCYCLINE 100MG TABLET PO SCH ×2 (08:58→20:54)
[2018-02-13] MEDS: GABAPENTIN 400 MG CAPSULE PO SCH ×3 (09:22→20:46)
[2018-02-13 14:13] VITALS: BP 111/39
[2018-02-13] MEDS ORDERED: ACETAMINOPHEN 325 MG TABLET PO PRN (15:00)
[2018-02-13] MEDS: HEPARIN 5,000 UNITS/ML, 1ML SQ SCH (16:00)
[2018-02-13 19:14] VITALS: BP 140/89
[2018-02-13] MEDS: AMITRIPTYLINE 75 MG TABLET PO SCH (20:45)
[2018-02-14] MEDS: HEPARIN 5,000 UNITS/ML, 1ML SQ SCH ×2 (00:07→10:12)
[2018-02-14] MEDS: AMPICILLIN/SULBACTAM 3 GM in SODIUM CHLORIDE 0.9% 100 ML IV SCH ×2 (03:47→10:08)
[2018-02-14] MEDS: methylPREDNISolone SOD SUCC 125 MG/2 ML IVPush SCH ×2 (03:50→10:12)
[2018-02-14 03:55] VITALS: BP 135/91
[2018-02-14] MEDS: HYDROcodone/APAP 10/325 MG TABLET PO SCH ×2 (05:34→11:59)
[2018-02-14] MEDS: NICOTINE 14MG/24 HR PATCH.TD24 TD SCH (05:35)
[2018-02-14 08:00] VITALS: BP 160/98
[2018-02-14] MEDS: DOXYCYCLINE 100MG TABLET PO SCH (09:00)
[2018-02-14] MEDS: SENNA/DOCUSATE TABLET PO SCH (09:00)
[2018-02-14] MEDS: GABAPENTIN 400 MG CAPSULE PO SCH (10:08)
[2018-02-14] MEDS: ASCORBIC ACID 500 MG TABLET PO SCH (10:08)
[2018-02-14] MEDS: VENLAFAXINE 75MG TABLET PO SCH (10:09)
[2018-02-14] MEDS: PANTOPROZOLE 40MG TABLET PO SCH (10:09)
[2018-02-14] MEDS ORDERED: DOXY100C2 PO (11:36)
[2018-02-14] MEDS ORDERED: AMOX1TAB64 PO (11:36)
== END 2018-02-14 15:13 | disposition home or self-care (01) ==
LOC: ED 16:27 → INTOOBSV 17:24 → EDIP 17:24 → 3NE 18:40 → DCLOUNGE 02-14 14:51
PROVIDERS: ADMIT Hospitalist; ATTEND Hospitalist
DX: L03.115 Cellulitis of right lower limb (principal); J96.01 Acute respiratory failure with hypoxia; L40.1 Generalized pustular psoriasis; L03.116 Cellulitis of left lower limb; M81.0 Age-related osteoporosis without current pathological fracture; D72.829 Elevated white blood cell count, unspecified; K21.9 Gastro-esophageal reflux disease without esophagitis; Z80.41 Family history of malignant neoplasm of ovary; F10.20 Alcohol dependence, uncomplicated; Z60.2 Problems related to living alone; F32.9 Major depressive disorder, single episode, unspecified; G89.29 Other chronic pain; M79.671 Pain in right foot; M79.672 Pain in left foot; J44.9 Chronic obstructive pulmonary disease, unspecified; Z96.642 Presence of left artificial hip joint
CPT/HCPCS: 36415; 80053; 83605; 84439; 84443; 85025; 85651; 86140; 87040; 96365; 96366; 96367; 96372; 96375; 96376; 97163; 97165; 99285; G0378; G8978; G8979; G8980; J0295; J1644; J2405; J2930; J7030

== ENCOUNTER 2018-02-18 16:46 | Emergency (ER) | payer MEDICARE ==
[~2018-02-18] VITALS: Ht 162.6 cm; Wt 56.5 kg
[~2018-02-18 16:46] MED LIST changes: +AMOX1TAB64 PO; +DOXY100C2 PO; +GABA600T2 PO; +VENL75TA PO
[2018-02-18 16:54] VITALS: BP 122/94
[2018-02-18] MEDS ORDERED: OXYcodone/APAP 10/325MG TABLET PO ONE (17:30)
[2018-02-18] MEDS ORDERED: OXYcodone/APAP 10/325MG TABLET ONE (17:45)
[2018-02-18] MEDS ORDERED: BACITRACIN ZINC OINT 500U/GM, 0.9 GM ONE (18:06)
== END 2018-02-18 18:20 | disposition home or self-care (01) ==
LOC: ED 17:00
DX: L30.9 Dermatitis, unspecified (principal); G89.29 Other chronic pain; E78.5 Hyperlipidemia, unspecified; F32.9 Major depressive disorder, single episode, unspecified; J44.9 Chronic obstructive pulmonary disease, unspecified; Z96.643 Presence of artificial hip joint, bilateral
CPT/HCPCS: 99283

== ENCOUNTER 2018-02-21 23:20 | Inpatient (IN) | payer MEDICARE ==
[~2018-02-21] VITALS: Ht 162.6 cm; Wt 62.5 kg
[2018-02-22] MEDS ORDERED: SODIUM CHLORIDE FLUSH 10ML SYR IVF ONE
[2018-02-22] MEDS ORDERED: ONDANSETRON ODT 8 MG PO ONE
[2018-02-22] MEDS ORDERED: SODIUM CHLORIDE 0.9% 1,000ML IVBOLUS ONE
[2018-02-22] MEDS ORDERED: ONDANSETRON ODT 4 MG ONE (00:13)
[2018-02-22 00:18] LABS: BASOPHILS # (AUTO) 0.03 x10^3/uL (0-0.1); BASOPHILS % (AUTO) 0 % (0-1); EOSINOPHILS # (AUTO) 0.06 x10^3/uL (0-0.4); EOSINOPHILS % (AUTO) 1 % (1-7); LYMPHOCYTES # (AUTO) 2.05 x10^3/uL (1-3.4); LYMPHOCYTES % (AUTO) 18 % (22-44); MD NO; MEAN CORPUSCULAR HEMOGLOBIN 32.9 pg (27.0-34.8); MEAN CORPUSCULAR HGB CONC 33.9 g/dL (32.4-35.8); MEAN CORPUSCULAR VOLUME 96.9 fL (80-100); MEAN PLATELET VOLUME 7.9 fL (7.4-10.4); MONOCYTES # (AUTO) 1.37 x10^3/uL (0.2-0.8); MONOCYTES % (AUTO) 12 % (2-9); NEUTROPHILS # (AUTO) 8.04 x10^3/uL (1.8-6.8); NEUTROPHILS % (AUTO) 70 % (42-75); PLATELET COUNT 425 x10^3/uL (130-400); RED BLOOD COUNT 4.96 x10^6/uL (3.82-5.3); RED CELL DISTRIBUTION WIDTH 15.1 % (9.6-15.2)
[2018-02-22 00:25] LABS: ANION GAP 14 mmol/L (5-15); CALCIUM 8.6 mg/dL (8.5-10.1); CHLORIDE 89 mmol/L (98-107); CREATININE 0.66 mg/dL (0.55-1.02)
[2018-02-22 00:26] LABS: ALANINE AMINOTRANSFERASE 23 U/L (12-78); ALBUMIN 3.5 g/dL (3.4-5.0)
[2018-02-22] MEDS ORDERED: MORPHINE SULFATE 4 MG/ML, 1ML ONE ×2 (00:26→00:28)
[2018-02-22 00:28] LABS: ALKALINE PHOSPHATASE 115 U/L (45-117); BILIRUBIN,TOTAL 0.8 mg/dL (0.2-1.0); TOTAL PROTEIN 7.8 g/dL (6.4-8.2)
[2018-02-22] MEDS ORDERED: MORPHINE SULFATE 4 MG/ML, 1ML IVPush ONE (00:30)
[2018-02-22] MEDS ORDERED: PANTOPRAZOLE 80 MG in SODIUM CHLORIDE 0.9% 50 ML IVPB ONE (00:38)
[2018-02-22] MEDS ORDERED: PANTOPRAZOLE 80 MG in SODIUM CHLORIDE 0.9% 100 ML IV SCH (00:38)
[2018-02-22 02:00] VITALS: BP 100/70
[2018-02-22] MEDS ORDERED: ACETAMINOPHEN 325 MG TABLET PO PRN (02:30)
[2018-02-22] MEDS ORDERED: LABETALOL 5MG/ML, 20ML IVPush PRN (02:30)
[2018-02-22] MEDS ORDERED: ONDANSETRON ODT 4 MG PO PRN (02:30)
[2018-02-22] MEDS ORDERED: ONDANSETRON 2MG/ML, 2ML IVPush PRN (02:30)
[2018-02-22] MEDS ORDERED: TRAZODONE 50MG TABLET PO PRN (02:30)
[2018-02-22] MEDS: PANTOPRAZOLE 80 MG in SODIUM CHLORIDE 0.9% 100 ML IV SCH ×2 (03:18→14:33)
[2018-02-22] MEDS: NICOTINE 14MG/24 HR PATCH.TD24 TD SCH (03:18)
[2018-02-22] MEDS: NS + 20MEQ KCL 1,000 ML IV SCH ×3 (03:18→22:21)
[2018-02-22 03:33] VITALS: BP 100/70
[2018-02-22 03:44] LABS: MICROSCOPIC AUTO
[2018-02-22 03:45] LABS: CULTURE INDICATED? YES
[2018-02-22] MEDS: HYDROcodone/APAP 5/325 TABLET PO PRN ×2 (03:52→08:22)
[2018-02-22 09:07] VITALS: BP 96/67
[2018-02-22] MEDS ORDERED: TEMPLATE NON-FORMULARY MED. (Biotin** 5 MG) PO SCH (10:00)
[2018-02-22] MEDS: CALCIUM/VITAMIN D3 250-125 TABLET PO SCH (11:58)
[2018-02-22] MEDS: HYDROcodone/APAP 10/325 MG TABLET PO SCH ×3 (11:58→20:48)
[2018-02-22] MEDS: ASCORBIC ACID 500 MG TABLET PO SCH (11:58)
[2018-02-22] MEDS: VENLAFAXINE 75MG TABLET PO SCH ×2 (11:59→20:48)
[2018-02-22 12:56] VITALS: BP 116/82
[2018-02-22] MEDS: GABAPENTIN 300 MG CAPSULE PO SCH ×2 (14:32→20:48)
[2018-02-22 19:00] VITALS: BP 99/67
[2018-02-22] MEDS ORDERED: AMITRIPTYLINE 75 MG TABLET PO SCH (21:00)
[2018-02-22] MEDS: AMITRIPTYLINE 75 MG TABLET PO SCH (22:34)
[2018-02-22 22:46] LABS: CLOSTRIDIUM DIFFICILE ANTIGEN NEGATIVE; CLOSTRIDIUM DIFFICILE TOXIN NEGATIVE (Negative)
[2018-02-23 01:31] VITALS: BP 96/61
[2018-02-23] MEDS: NICOTINE 14MG/24 HR PATCH.TD24 TD SCH (01:52)
[2018-02-23] MEDS: PANTOPRAZOLE 80 MG in SODIUM CHLORIDE 0.9% 100 ML IV SCH (01:52)
[2018-02-23 05:40] LABS: ALANINE AMINOTRANSFERASE 17 U/L (12-78); ALBUMIN 2.4 g/dL (3.4-5.0); ANION GAP 6 mmol/L (5-15); CALCIUM 7.5 mg/dL (8.5-10.1); CHLORIDE 110 mmol/L (98-107); CREATININE 0.65 mg/dL (0.55-1.02)
[2018-02-23 05:51] LABS: ALKALINE PHOSPHATASE 68 U/L (45-117); BILIRUBIN,TOTAL 0.4 mg/dL (0.2-1.0); TOTAL PROTEIN 5.4 g/dL (6.4-8.2)
[2018-02-23 06:02] LABS: BASOPHILS # (AUTO) 0.03 x10^3/uL (0-0.1); BASOPHILS % (AUTO) 1 % (0-1); EOSINOPHILS # (AUTO) 0.28 x10^3/uL (0-0.4); EOSINOPHILS % (AUTO) 4 % (1-7); LYMPHOCYTES # (AUTO) 2.05 x10^3/uL (1-3.4); LYMPHOCYTES % (AUTO) 32 % (22-44); MD NO; MEAN CORPUSCULAR HEMOGLOBIN 33.3 pg (27.0-34.8); MEAN CORPUSCULAR HGB CONC 33.3 g/dL (32.4-35.8); MEAN CORPUSCULAR VOLUME 99.9 fL (80-100); MEAN PLATELET VOLUME 8.2 fL (7.4-10.4); MONOCYTES # (AUTO) 0.79 x10^3/uL (0.2-0.8); MONOCYTES % (AUTO) 12 % (2-9); NEUTROPHILS # (AUTO) 3.26 x10^3/uL (1.8-6.8); NEUTROPHILS % (AUTO) 51 % (42-75); PLATELET COUNT 300 x10^3/uL (130-400); RED BLOOD COUNT 3.45 x10^6/uL (3.82-5.3); RED CELL DISTRIBUTION WIDTH 15.6 % (9.6-15.2)
[2018-02-23] MEDS: HYDROcodone/APAP 10/325 MG TABLET PO SCH ×4 (06:11→21:04)
[2018-02-23] MEDS: NS + 20MEQ KCL 1,000 ML IV SCH (06:11)
[2018-02-23 07:24] VITALS: BP 95/67
[2018-02-23] MEDS: PANTOPRAZOLE 40 MG IV IVPush SCH ×2 (08:13→21:04)
[2018-02-23] MEDS: ASCORBIC ACID 500 MG TABLET PO SCH (08:14)
[2018-02-23] MEDS: CALCIUM/VITAMIN D3 250-125 TABLET PO SCH (08:14)
[2018-02-23] MEDS: GABAPENTIN 300 MG CAPSULE PO SCH ×2 (08:14→21:04)
[2018-02-23] MEDS: VENLAFAXINE 75MG TABLET PO SCH ×2 (08:14→21:04)
[2018-02-23] MEDS ORDERED: HYDROCORTISONE OINT 0.5%, 30GM TP PRN (08:30)
[2018-02-23 12:29] VITALS: BP 93/63
[2018-02-23 18:55] VITALS: BP 92/62
[2018-02-23] MEDS: AMITRIPTYLINE 75 MG TABLET PO SCH (21:04)
[2018-02-24 01:39] VITALS: BP 128/86
[2018-02-24] MEDS: HYDROcodone/APAP 10/325 MG TABLET PO SCH ×2 (04:56→11:08)
[2018-02-24] MEDS: NICOTINE 14MG/24 HR PATCH.TD24 TD SCH (04:56)
[2018-02-24 06:58] VITALS: BP 112/78
[2018-02-24] MEDS: VENLAFAXINE 75MG TABLET PO SCH (08:07)
[2018-02-24] MEDS: CALCIUM/VITAMIN D3 250-125 TABLET PO SCH (08:07)
[2018-02-24] MEDS: PANTOPRAZOLE 40 MG IV IVPush SCH (08:07)
[2018-02-24] MEDS: ASCORBIC ACID 500 MG TABLET PO SCH (08:07)
[2018-02-24] MEDS: GABAPENTIN 300 MG CAPSULE PO SCH (08:08)
[2018-02-24] MEDS ORDERED: HYDR28.33 TP (11:56)
[2018-02-24] MEDS ORDERED: PANT40TA3 PO (11:56)
[2018-02-24] MEDS ORDERED: GABA300C10 PO (11:56)
[2018-02-24 13:13] VITALS: BP 122/82
== END 2018-02-24 14:02 | disposition home or self-care (01) | DRG 378 ==
LOC: ED 23:59 → EDIP 02-22 01:09 → 3NE 02-22 01:45 → DCLOUNGE 02-24 13:52
PROVIDERS: ADMIT Internal Medicine; ATTEND Internal Medicine
DX: K29.71 Gastritis, unspecified, with bleeding (principal); E87.1 Hypo-osmolality and hyponatremia; F11.23 Opioid dependence with withdrawal; K27.4 Chronic or unspecified peptic ulcer, site unspecified, with hemorrhage; D72.829 Elevated white blood cell count, unspecified; E78.5 Hyperlipidemia, unspecified; F17.200 Nicotine dependence, unspecified, uncomplicated; K21.9 Gastro-esophageal reflux disease without esophagitis; J44.9 Chronic obstructive pulmonary disease, unspecified; F51.04 Psychophysiologic insomnia; F32.9 Major depressive disorder, single episode, unspecified; F12.90 Cannabis use, unspecified, uncomplicated; E87.6 Hypokalemia; M81.0 Age-related osteoporosis without current pathological fracture; Z66 Do not resuscitate; G89.29 Other chronic pain; Z96.649 Presence of unspecified artificial hip joint; Z88.8 Allergy status to other drugs, medicaments and biological substances; Z71.6 Tobacco abuse counseling
CPT/HCPCS: 36415; 80053; 81001; 83690; 83735; 84100; 84443; 85014; 85018; 85025; 86850; 86900; 87046; 87086; 87324; 87427; 89055; 96365; 96375; 99285; G0378; J3480; Q0162; C9113; J7030

== ENCOUNTER → 2018-05-29 | Outpatient (CLI) | payer MEDICARE ==
[~2018-05-29] MED LIST changes: -GABA600T2 PO; +GABA600T7 PO; +HYDR28.33 TP; +METR-90 PO; -METR500T8 PO; +SUCR1ORA5 PO
== END | disposition home or self-care (01) ==
LOC: RAD 16:06
PROVIDERS: ATTEND Specialist
DX: G57.03 Lesion of sciatic nerve, bilateral lower limbs (principal); R60.0 Localized edema; M47.816 Spondylosis without myelopathy or radiculopathy, lumbar region; N32.89 Other specified disorders of bladder

== ENCOUNTER 2018-06-21 14:43 | Emergency (ER) | payer MEDICARE ==
[~2018-06-21] VITALS: Ht 162.6 cm; Wt 55.9 kg
[2018-06-21 14:45] VITALS: BP 143/97
[2018-06-21] MEDS ORDERED: KETOROLAC 30 MG/1 ML ONE (15:16)
[2018-06-21] MEDS ORDERED: DIAZEPAM 5 MG TABLET ONE (15:16)
[2018-06-21] MEDS ORDERED: DIAZEPAM 5 MG TABLET PO ONE (15:30)
[2018-06-21] MEDS ORDERED: KETOROLAC 30 MG/1 ML IM ONE (15:30)
== END 2018-06-21 16:03 | disposition home or self-care (01) ==
LOC: ED 15:57
DX: M54.5 Low back pain (principal); E78.5 Hyperlipidemia, unspecified; J44.9 Chronic obstructive pulmonary disease, unspecified; F32.9 Major depressive disorder, single episode, unspecified; M19.90 Unspecified osteoarthritis, unspecified site; G89.29 Other chronic pain
CPT/HCPCS: 96372; 99283; J1885; J7512

== ENCOUNTER 2018-08-15 18:24 | Emergency (ER) | payer MEDICARE ==
[~2018-08-15] VITALS: Ht 160 cm; Wt 59.0 kg
[~2018-08-15 18:24] MED LIST changes: +SENN-177 PO; -SENN1TAB8 PO
--- NOTE | 2018-08-15 19:00 | NUR ---
PRESENTS POV FOR EXACERABATION OF CHRONIC LUMBAR PAIN, REPORTS SHE TRIPPED AND NEARLY FELL "TWEAKING MY NECK AND BACK) (HAS PAIN CONTRACT WITH APPOINTMENT Saturday08/18/18). NO FOCAL DEFICITS. NO BOWEL/BLADDER DEFICITS, VITAL STABLE W/ EXCEPTION OF BP 173/102.
[2018-08-15] MEDS ORDERED: CYCLOBENZAPRINE 10 MG TABLET ONE (19:12)
[2018-08-15] MEDS ORDERED: CYCLOBENZAPRINE 10 MG TABLET PO ONE (19:30)
[2018-08-15] MEDS ORDERED: HYDROmorphone 1 MG/ML, 1ML INJ IM ONE (19:30)
--- NOTE | 2018-08-15 19:32 | NUR ---
PRIOR TO MEDICATION-PATIENT REPORTS BACK/NECK PAIN AT 02/12. PLACED ON NIBP/POX PATIENT CALLED FRIEND FOR RIDE HOME UPDATED ON ESTIMATED POC CALL [facility] W/IN REACH/SIDE RAILS UP
--- NOTE | 2018-08-15 19:55 | NUR ---
REPORTS PAIN IMPROVED TO 5/10. REMAINS AWAKE/ALERT. DOES NOT APPEAR OVERLY MEDICATED VSS. UPDATED ON ESTIMATED POC
--- NOTE | 2018-08-15 20:27 | NUR ---
AMBULATED AYON W/OUT DIFFICULTY (PAIN REMAINS 5/10). TAKING PO FLUIDS. PROVIDED W/ TAXI VOUCHER PATIENT UNABLE TO OBTAIN RIDE SOCIALLY. SPECIAL EVENTS FUNDRAISER FEELS PATIENT AMBLE TO SAFELY MOBILIZE FROM TAXI TO ROOM
[2018-08-15 20:28] VITALS: BP 143/71
== END 2018-08-15 20:30 | disposition home or self-care (01) ==
LOC: ED 19:17
DX: S16.1XXA Strain of muscle, fascia and tendon at neck level, initial encounter (principal); M54.5 Low back pain; W19.XXXA Unspecified fall, initial encounter; Y93.89 Activity, other specified; Y92.89 Other specified places as the place of occurrence of the external cause; Y99.8 Other external cause status
CPT/HCPCS: 96372; 99283; J1170

== ENCOUNTER 2018-09-02 21:14 | Emergency (ER) | payer MEDICARE ==
[~2018-09-02] VITALS: Ht 160 cm; Wt 68.0 kg
[2018-09-02 21:22] VITALS: BP 140/100
--- NOTE | 2018-09-02 21:26 | NUR ---
PT ARRIVES TO ED WITH ABD PAIN, LOWER BACK PAIN, AND RIGHT SHOULDER PAIN. PT DENIES ANY TRUAMA. PT HAS EXTENSIVE CHRONIC PAIN HX. PT REPROTS HER PAIN TO BE A 10/10 AND PER PT "MY WHOLE BODY HURTS, I NEED PAIN CONTROL.". PT INFORMED THAT MD WILL SEE HER AND WILL TREAT HER PAIN AFTER EVALUATION. PT HAS ABD PAIN GENERALIZED AND HAS NAUSEA AND VOMITTING. PT APPEARS COMFORTABLE IN BED.
[2018-09-02] MEDS ORDERED: METOCLOPRAMIDE 5 MG/ML, 2ML IVPush ONE (21:30)
[2018-09-02] MEDS ORDERED: SODIUM CHLORIDE FLUSH 10ML SYR IVF ONE (21:30)
[2018-09-02] MEDS ORDERED: MORPHINE SULFATE 4 MG/ML, 1ML IVPush PRN (21:30)
[2018-09-02] MEDS ORDERED: DIPHENHYDRAMINE 50 MG/ML, 1ML IVPush ONE (21:30)
[2018-09-02] MEDS ORDERED: PROMETHAZINE 25 MG/ML, 1ML ONE (21:50)
[2018-09-02 21:54] LABS: BASOPHILS # (AUTO) 0.04 x10^3/uL (0-0.1); BASOPHILS % (AUTO) 1 % (0-1); EOSINOPHILS # (AUTO) 0.04 x10^3/uL (0-0.4); EOSINOPHILS % (AUTO) 1 % (1-7); LYMPHOCYTES # (AUTO) 1.31 x10^3/uL (1-3.4); LYMPHOCYTES % (AUTO) 20 % (22-44); MD NO; MEAN CORPUSCULAR HEMOGLOBIN 32.1 pg (27.0-34.8); MEAN CORPUSCULAR HGB CONC 33.9 g/dL (32.4-35.8); MEAN CORPUSCULAR VOLUME 94.7 fL (80-100); MEAN PLATELET VOLUME 8.5 fL (7.4-10.4); MONOCYTES # (AUTO) 0.37 x10^3/uL (0.2-0.8); MONOCYTES % (AUTO) 6 % (2-9); NEUTROPHILS # (AUTO) 4.81 x10^3/uL (1.8-6.8); NEUTROPHILS % (AUTO) 73 % (42-75); PLATELET COUNT 336 x10^3/uL (130-400); RED BLOOD COUNT 5.31 x10^6/uL (3.82-5.3); RED CELL DISTRIBUTION WIDTH 16.6 % (9.6-15.2)
--- NOTE | 2018-09-02 21:57 | NUR ---
THIS RN PLACED A PIV IN PTS LEFT WRIST, PT WAS UANBLE TO TOLERATE THE PIV BECAUSE IT WAS CAUSING HER PAIN DESPITE BEING PLACED AND REQUESTED RN TO PULL IT OUT. PIV WAS REMOVED. PT ALSO HAS BEEN NOTED TO HAVE STRONG ETOH SMELL ON HER BREATH. PT REQUESTING NARCOTIC PAIN CONTROL AND WANTS A PIV. MD PLASENCIA INFORMED OF PTS DECISIONS AND REQUESTS. PT ASLO STATED TO POLISHER IMPLANT THAT "YOU SURE KNOW HOW TO DISH OUT PAIN" DUE TO LAB DRAW. PT ALSO VERBALIZED " YOU NEED TO USE THE VEINS I SAY BECAUSE I KNOW MY BODY AND THIS ER IS MY SECOND HOME". PT WAS REASSURED WE ARE NOT HERE TO CAUSE PAIN AND WE ARE ONLY TRYING TO HELP HER FEEL BETTER. MD PLASENCIA REQUESTED PIV BE HELD AND NARCOTIC PAIN MEDICATION DUE TO ETOH SUSPICION AT THIS TIME. SUP RN INFORMED OF PTS AND THIS RNS INTERACTION FOR SAFETY.
[2018-09-02] MEDS ORDERED: PROMETHAZINE 25 MG/ML, 1ML IM ONE (22:00)
--- NOTE | 2018-09-02 22:02 | NUR ---
PT MEDICATED WITH PHNERGAN IM TO HELP ABD PAIN AND N/V
[2018-09-02 22:05] LABS: ALANINE AMINOTRANSFERASE 22 U/L (12-78); ALBUMIN 3.6 g/dL (3.4-5.0); ANION GAP 14 mmol/L (5-15); CALCIUM 9.2 mg/dL (8.5-10.1); CHLORIDE 104 mmol/L (98-107)
[2018-09-02 22:06] LABS: ALKALINE PHOSPHATASE 108 U/L (45-117); TOTAL PROTEIN 8.2 g/dL (6.4-8.2)
[2018-09-02 22:07] LABS: BILIRUBIN,TOTAL < 0.1 mg/dL (0.2-1.0)
--- NOTE | 2018-09-02 22:21 | NUR ---
PT GIVEN WARM BLANKET FOR COMFORT.
[2018-09-02] MEDS ORDERED: HYDROcodone/APAP 10/325 MG TABLET ONE (22:32)
[2018-09-02] MEDS ORDERED: HYDROcodone/APAP 10/325 MG TABLET PO ONE (23:00)
--- NOTE | 2018-09-02 23:33 | NUR ---
Patient/Caregiver given discharge instructions and they have confirmed that they understand the instructions. Patient ambulatory with steady gait. PT GIVEN TAXI VOUCHER SHE WAS REQUESTING A RIDE HOME. PT GIVEN WATER WELL PER HER REQUEST. DISCUSSED WITH PT IM SHOT SITE AND INFROMED HER SHE WOULD BE TENDER.
== END 2018-09-02 23:35 | disposition home or self-care (01) ==
LOC: ED 21:59
DX: R11.2 Nausea with vomiting, unspecified (principal); R19.7 Diarrhea, unspecified; M25.511 Pain in right shoulder; F11.23 Opioid dependence with withdrawal; E78.5 Hyperlipidemia, unspecified; F41.1 Generalized anxiety disorder; M19.90 Unspecified osteoarthritis, unspecified site; G89.29 Other chronic pain; F32.9 Major depressive disorder, single episode, unspecified; J44.9 Chronic obstructive pulmonary disease, unspecified
CPT/HCPCS: 36415; 73030; 80053; 80307; 83690; 85025; 96372; 99284; J2550

== ENCOUNTER 2018-09-04 16:34 | Emergency (ER) | payer MEDICARE ==
[~2018-09-04] VITALS: Ht 162.6 cm; Wt 55.0 kg
[2018-09-04] MEDS ORDERED: HYDROmorphone 2 MG/ML, 1ML IM ONE (18:00)
[2018-09-04] MEDS ORDERED: ONDANSETRON ODT 4 MG PO ONE (18:00)
[2018-09-04] MEDS ORDERED: ONDANSETRON ODT 4 MG ONE (18:12)
[2018-09-04] MEDS ORDERED: HYDROmorphone 2 MG/ML, 1ML ONE (18:13)
--- NOTE | 2018-09-04 18:20 | NUR ---
PT MEDICATED FOR 8/10 CHRONIC BILATERAL LOWER BACK PAIN. PT PLACED ON BP AND SPO2 MONITORS. PT A&O, RESPS EVEN AND UNLABORED. BUD.
--- NOTE | 2018-09-04 18:45 | NUR ---
REPORT TO BREAK PILLO GOVEA, PT A&O, RESPS EVEN AND UNLABORED, NO COMPLAINT AT THIS TIME.
[2018-09-04 18:51] VITALS: BP 113/73
--- NOTE | 2018-09-04 18:52 | NUR ---
PT REPORTS PAIN HAS LESSENED AFTER DILAUDID.
== END 2018-09-04 18:53 | disposition home or self-care (01) ==
LOC: ED 16:51
DX: S39.012A Strain of muscle, fascia and tendon of lower back, initial encounter (principal); S40.012A Contusion of left shoulder, initial encounter; F41.1 Generalized anxiety disorder; M19.90 Unspecified osteoarthritis, unspecified site; E78.5 Hyperlipidemia, unspecified; J44.9 Chronic obstructive pulmonary disease, unspecified; X58.XXXA Exposure to other specified factors, initial encounter; Y93.89 Activity, other specified; Y92.89 Other specified places as the place of occurrence of the external cause; Y99.8 Other external cause status
CPT/HCPCS: 96372; 99283; J1170; Q0162

== ENCOUNTER 2018-11-02 12:52 | Emergency (ER) | payer MEDICARE ==
[~2018-11-02] VITALS: Ht 160 cm; Wt 57.0 kg
[2018-11-02 12:56] VITALS: BP 150/87
--- NOTE | 2018-11-02 13:16 | NUR ---
ER PA WAS IN TO SEE PT. PT ALSO C/O DIARRHEA AND DEHYDRATION.
[2018-11-02] MEDS ORDERED: HYDROcodone/APAP 5/325 TABLET ONE (13:18)
--- NOTE | 2018-11-02 13:24 | NUR ---
PT MEDICATED FOR PAIN. STATES SHE'S UNABLE TO AMBULATE D/T BACK PAIN AND SCIATICA.
[2018-11-02] MEDS ORDERED: HYDROcodone/APAP 5/325 TABLET PO ONE (13:30)
[2018-11-02 13:34] LABS: BASOPHILS # (AUTO) 0.03 x10^3/uL (0-0.1); BASOPHILS % (AUTO) 0 % (0-1); EOSINOPHILS # (AUTO) 0.24 x10^3/uL (0-0.4); EOSINOPHILS % (AUTO) 3 % (1-7); LYMPHOCYTES # (AUTO) 2.15 x10^3/uL (1-3.4); LYMPHOCYTES % (AUTO) 25 % (22-44); MD NO; MEAN CORPUSCULAR HEMOGLOBIN 32.6 pg (27.0-34.8); MEAN CORPUSCULAR HGB CONC 32.6 g/dL (32.4-35.8); MEAN CORPUSCULAR VOLUME 99.9 fL (80-100); MEAN PLATELET VOLUME 8.7 fL (7.4-10.4); MONOCYTES # (AUTO) 0.83 x10^3/uL (0.2-0.8); MONOCYTES % (AUTO) 10 % (2-9); NEUTROPHILS # (AUTO) 5.25 x10^3/uL (1.8-6.8); NEUTROPHILS % (AUTO) 62 % (42-75); PLATELET COUNT 296 x10^3/uL (130-400); RED BLOOD COUNT 5.46 x10^6/uL (3.82-5.3); RED CELL DISTRIBUTION WIDTH 14.7 % (9.6-15.2)
[2018-11-02 13:44] LABS: ALBUMIN 4.1 g/dL (3.4-5.0); ANION GAP 8 mmol/L (5-15); CALCIUM 9.5 mg/dL (8.5-10.1); CHLORIDE 103 mmol/L (98-107); CREATININE 0.81 mg/dL (0.55-1.02)
--- NOTE | 2018-11-02 13:46 | NUR ---
PT REQUESTING ADDITIONAL PAIN MEDS, STATES, "[facility] WON'T DO ANYTHING FOR ME." WILL NOTIFY ED PA.
--- NOTE | 2018-11-02 14:22 | NUR ---
D/C INSTRUCTIONS, MEDS & F/U APPT RV'WD WITH PT, SHE VERBALIZES UNDERSTANDING. RX GIVEN X1. ASSISTED PT OUT OF ED VIA WC. Addendum: 11/02/18 at 1422 by VANESSA ERP WAS IN FOR RE-EVAL.
== END 2018-11-02 14:24 | disposition home or self-care (01) ==
LOC: ED 14:15
DX: G89.29 Other chronic pain (principal); M54.5 Low back pain; R19.7 Diarrhea, unspecified; J44.9 Chronic obstructive pulmonary disease, unspecified; E78.5 Hyperlipidemia, unspecified; F41.1 Generalized anxiety disorder; M19.90 Unspecified osteoarthritis, unspecified site; Z72.9 Problem related to lifestyle, unspecified; F32.9 Major depressive disorder, single episode, unspecified
CPT/HCPCS: 36415; 80048; 82040; 85025; 99283

== ENCOUNTER 2018-11-29 23:55 | Emergency (ER) | payer MEDICARE ==
[~2018-11-29] VITALS: Ht 162.6 cm; Wt 56.0 kg
[2018-11-30 02:51] VITALS: BP 115/72
== END 2018-11-30 02:53 | disposition home or self-care (01) ==
LOC: ED 11-30 00:55
DX: G89.11 Acute pain due to trauma (principal); M51.16 Intervertebral disc disorders with radiculopathy, lumbar region; M51.36 Other intervertebral disc degeneration, lumbar region; N30.01 Acute cystitis with hematuria; I10 Essential (primary) hypertension; E78.5 Hyperlipidemia, unspecified; J44.9 Chronic obstructive pulmonary disease, unspecified; M25.552 Pain in left hip; W18.30XA Fall on same level, unspecified, initial encounter; Y93.89 Activity, other specified; Y92.89 Other specified places as the place of occurrence of the external cause; Y99.8 Other external cause status
CPT/HCPCS: 72131; 81001; 87077; 87086; 96372; 99284; J1885; 87186

== ENCOUNTER 2018-12-07 14:05 | Emergency (ER) | payer MEDICARE ==
[~2018-12-07] VITALS: Ht 162.6 cm; Wt 55.0 kg
[~2018-12-07 14:05] MED LIST changes: -HYDR-3307 PO; +HYDR-36 PO; +MORP-29 PO; +MORP-30 PO; -MORP15TA3 PO; -MORP30TA3 PO
[2018-12-07 14:14] VITALS: BP 146/100
--- NOTE | 2018-12-07 14:19 | NUR ---
BIB EMS FOR HIP PAIN. "PT STATES SHE STEPPED WEIRD" DENIES FALL. PER EMS PT WAS RECENTLY HERE FOR UTI DC W CEFDINIR. PT NON COMPLIANT W MEDS, DID NOT TAKE FULL COURSE OF ABX. PT STATES HER STOMACH IS "MESSED UP FROM MEDS" MD AT BEDSIDE. PT RESTING IN RPERCIVAL, PAIN IS 10/10. PT WANTS PAIN MEDS AND TO BE ADMITTED. PT DOES NOT APPEAR IN DISTRESS.
--- NOTE | 2018-12-07 14:58 | NUR ---
PT AMUBLATED 1 ASSIST UNSTEADY TO BATHROOM. UA OBTAINED
[2018-12-07 15:07] LABS: CULTURE INDICATED? YES; MICROSCOPIC AUTO
--- NOTE | 2018-12-07 15:44 | NUR ---
PT STATES "I WANTED THE DR TO WALK W ME AND SEE ME WALK. PT STATES I CANNOT GO HOME AND CARE FOR MYSELF, I WANT TO BE ADMITTED. I HAVE MUCH PAIN, I SAW MY PAIN DR ON SATURDAY AND MY LAST DOSE I TOOK WAS YESTERDAY" AWARE OF PT CONCERNS.
[2018-12-07] MEDS ORDERED: OxyconTIN ER 10 MG TAB.ER PO ONE (16:00)
--- NOTE | 2018-12-07 16:17 | NUR ---
MD AT BEDSIDE. MEDICATED PER MD. PT DC W ALL INSTRUCTIONS. WHEELCHAIR TO DC AREA.
[2019-02-14] MEDS ORDERED: AMIT100T PO (20:22)
[2019-02-16] MEDS ORDERED: MAGN70TA2 PO (12:47)
[2019-02-16] MEDS ORDERED: SENN-177 PO (12:47)
[2019-02-16] MEDS ORDERED: THIA100T67 PO (12:52)
[2019-02-16] MEDS ORDERED: OMEP-110 PO (12:52)
[2019-02-16] MEDS ORDERED: FOLI-17 PO (12:52)
== END 2018-12-07 16:19 | disposition home or self-care (01) ==
LOC: ED 14:09
DX: N39.0 Urinary tract infection, site not specified (principal); M25.552 Pain in left hip; I10 Essential (primary) hypertension; F41.1 Generalized anxiety disorder; M19.90 Unspecified osteoarthritis, unspecified site; E78.5 Hyperlipidemia, unspecified; F32.9 Major depressive disorder, single episode, unspecified; J44.9 Chronic obstructive pulmonary disease, unspecified; F17.200 Nicotine dependence, unspecified, uncomplicated; Z96.642 Presence of left artificial hip joint
CPT/HCPCS: 81001; 87077; 87086; 87186; 99284

== ENCOUNTER → 2019-04-20 | Outpatient (CLI) | payer MEDICARE ==
[~2019-04-20] MED LIST changes: -ACET-1757 PO; +ACET-2065 PO; +AMIT100T PO; +FOLI-17 PO; +MAGN70TA2 PO
== END | disposition home or self-care (01) ==
LOC: CFH 13:41
PROVIDERS: ATTEND Nurse Practitioner Family
DX: Z12.31 Encounter for screening mammogram for malignant neoplasm of breast (principal); Z11.1 Encounter for screening for respiratory tuberculosis; J43.2 Centrilobular emphysema; M81.8 Other osteoporosis without current pathological fracture; Z87.891 Personal history of nicotine dependence; Z78.0 Asymptomatic menopausal state
CPT/HCPCS: 77067; 77080; G0297

== ENCOUNTER 2019-06-06 17:29 | Emergency (ER) | payer MEDICARE ==
[~2019-06-06] VITALS: Ht 162.6 cm; Wt 56.8 kg
--- NOTE | 2019-06-06 18:15 | NUR ---
EDI MANAGER: PT TO ROOM FROM LOBBY VIA
--- NOTE | 2019-06-06 18:21 | NUR ---
ERMD LAW AT BEDSIDE FOR EVALUATION
[2019-06-06 18:28] VITALS: BP 166/98
[2019-06-06] MEDS ORDERED: TRIAMCINOLONE ACETONIDE 40 MG/ML, 1ML IM ONE (19:00)
[2019-06-06] MEDS ORDERED: TRIAMCINOLONE CRM 0.1%, 15GM TP ONE (19:00)
[2019-06-06] MEDS ORDERED: TRIAMCINOLONE CRM 0.1%, 15GM TP SCH (19:00)
[2019-06-06 19:02] LABS: BASOPHILS # (AUTO) 0.11 x10^3/uL (0-0.1); BASOPHILS % (AUTO) 1 % (0-1); EOSINOPHILS # (AUTO) 0.48 x10^3/uL (0-0.4); EOSINOPHILS % (AUTO) 5 % (1-7); LYMPHOCYTES # (AUTO) 2.38 x10^3/uL (1-3.4); LYMPHOCYTES % (AUTO) 27 % (22-44); MD NO; MEAN CORPUSCULAR HEMOGLOBIN 31.9 pg (27.0-34.8); MEAN CORPUSCULAR HGB CONC 32.5 g/dL (32.4-35.8); MEAN PLATELET VOLUME 8.3 fL (7.4-10.4); MONOCYTES # (AUTO) 0.85 x10^3/uL (0.2-0.8); MONOCYTES % (AUTO) 10 % (2-9); NEUTROPHILS # (AUTO) 4.99 x10^3/uL (1.8-6.8); NEUTROPHILS % (AUTO) 57 % (42-75); PLATELET COUNT 317 x10^3/uL (130-400); RED BLOOD COUNT 5.02 x10^6/uL (3.82-5.3); RED CELL DISTRIBUTION WIDTH 16.5 % (9.6-15.2)
[2019-06-06 19:13] LABS: ALANINE AMINOTRANSFERASE 16 U/L (12-78); ALBUMIN 3.4 g/dL (3.4-5.0); ANION GAP 6 mmol/L (5-15); CALCIUM 8.9 mg/dL (8.5-10.1); CHLORIDE 99 mmol/L (98-107); CREATININE 0.63 mg/dL (0.55-1.02)
[2019-06-06 19:16] LABS: ALKALINE PHOSPHATASE 146 U/L (45-117); BILIRUBIN,TOTAL 0.3 mg/dL (0.2-1.0); TOTAL PROTEIN 8.1 g/dL (6.4-8.2)
== END 2019-06-06 20:56 | disposition home or self-care (01) ==
LOC: ED 19:48
DX: R21 Rash and other nonspecific skin eruption (principal); M79.662 Pain in left lower leg; M79.661 Pain in right lower leg; F17.200 Nicotine dependence, unspecified, uncomplicated; I10 Essential (primary) hypertension; E78.5 Hyperlipidemia, unspecified; J44.9 Chronic obstructive pulmonary disease, unspecified; G89.29 Other chronic pain; M19.90 Unspecified osteoarthritis, unspecified site; Z96.643 Presence of artificial hip joint, bilateral
CPT/HCPCS: 36415; 80053; 83605; 85025; 87040; 93970; 96372; 99284; J3301

== ENCOUNTER 2020-01-27 12:29 | Emergency (ER) | payer MEDICARE ==
[~2020-01-27] VITALS: Ht 160 cm; Wt 58.1 kg
[~2020-01-27 12:29] MED LIST changes: +HYDR-3246 PO; -HYDR-36 PO; -TRAZ-137 PO; +TRAZ-175 PO
[2020-01-27 12:32] VITALS: BP 138/92
[2020-01-27] MEDS ORDERED: ACETAMINOPHEN 325 MG TABLET ONE (12:53)
[2020-01-27] MEDS ORDERED: DIPH,PERTUSS(ACELL),TET VAC/PF 0.5 ML IM-VACC ONE ×2 (12:53→13:00)
--- NOTE | 2020-01-27 12:58 | NUR ---
TASK RN, COVERING MEAL BREAK. ATTEMPT TO ADMINISTER MEDS PER EMAR, TYLENOL AND TETANUS. PT STATES "I WANT TO GO TO [facility], I THINK THEY WILL GIVE ME WHAT I WANT". PT ASKED WHAT SHE WANTS AND REPLIES "I DON'T WANT TYLENOL FOR PAIN". PT SAYS SHE IS GOING TO LEAVE BUT THEN SAYS, "OH, XRAY IS HERE, I GUESS I'LL STAY FOR XRAY". PT REFUSES TYLENOL AND TETANUS. ERP INFORMED.
[2020-01-27] MEDS ORDERED: ACETAMINOPHEN 325 MG TABLET PO ONE (13:00)
--- NOTE | 2020-01-27 13:23 | NUR ---
XRAY RESULT BACK, PT FOR RECHECK.
--- NOTE | 2020-01-27 13:28 | NUR ---
PT APPROACHED NURSING STATION STATING "I WANT THE MEDICARE PHONE NUMBER TO KNOW MY RIGHTS. SOON I WALK OUT OF THIS HOSPITAL I WILL CALL THEM TO COMPLAIN. I WANT TO [facility] THIS HOSPITAL AND THAT DOCTOR, AND IF YOU GUYS WONT HELP ME THEN I WILL JUST ASK [employer]". PT TAKEN BACK TO ROOM AND COMFORTABLE ON BED, AWAITING D/C PAPERWORK.
--- NOTE | 2020-01-27 14:31 | NUR ---
Patient given discharge instructions and Rx, they have confirmed that they understand the instructions. Patient ambulatory with steady gait.
== END 2020-01-27 14:36 | disposition home or self-care (01) ==
LOC: ED 14:04
DX: S20.211A Contusion of right front wall of thorax, initial encounter (principal); S50.12XA Contusion of left forearm, initial encounter; S50.11XA Contusion of right forearm, initial encounter; L03.114 Cellulitis of left upper limb; L03.113 Cellulitis of right upper limb; F11.20 Opioid dependence, uncomplicated; Z76.5 Malingerer [conscious simulation]; J44.9 Chronic obstructive pulmonary disease, unspecified; E78.5 Hyperlipidemia, unspecified; I10 Essential (primary) hypertension; M19.90 Unspecified osteoarthritis, unspecified site; Y08.89XA Assault by other specified means, initial encounter; Y93.89 Activity, other specified; Y92.009 Unspecified place in unspecified non-institutional (private) residence as the place of occurrence of the external cause; Y99.8 Other external cause status
CPT/HCPCS: 71045; 99283

== ENCOUNTER 2020-11-03 16:49 | Emergency (ER) | payer MEDICARE ==
[~2020-11-03] VITALS: Ht 160 cm; Wt 58.3 kg
[~2020-11-03 16:49] MED LIST changes: -CYCL-259 PO; +CYCL10TA2 PO; -FOLI-17 PO; +FOLI1TAB32 PO; -HYDR-3245 PO; -HYDR-3246 PO; +HYDR-3248 PO; +HYDR1TAB53 PO; +MULT-482 PO; -MULT-750 PO; -NICO-487 TD; +NICO-587 TD; -OXYC5TAB3 PO; +OXYC5TAB98 PO
[2020-11-03 16:51] VITALS: BP 168/94
--- NOTE | 2020-11-03 18:54 | NUR ---
RECEIVED REPORT FROM PILLO GRAY
--- NOTE | 2020-11-03 18:59 | NUR ---
PT PRESENTS TO ED WITH A SPIDER BITE. LEFT FOREARM IS SWOLLEN AND RED. PT RESTING ON GURNEY.
[2020-11-03] MEDS ORDERED: CEFAZOLIN 1,000 MG IM ONE (19:00)
[2020-11-03] MEDS ORDERED: KETOROLAC 15 MG/1ML IM ONE (19:00)
[2020-11-03] MEDS ORDERED: KETOROLAC 30 MG/1 ML ONE ×2 (19:04→19:05)
[2020-11-03] MEDS ORDERED: CEFAZOLIN 1,000 MG ONE (19:04)
--- NOTE | 2020-11-03 19:15 | NUR ---
MEDS GIVEN, PT TOLERATED WELL, RESTING ON GURNEY, DENIES NEEDS AT THIS TIME
--- NOTE | 2020-11-03 19:26 | NUR ---
Patient given discharge instructions and they have confirmed that they understand the instructions. Patient ambulatory with steady gait.
== END 2020-11-03 19:29 | disposition home or self-care (01) ==
LOC: ED 17:19
DX: L02.414 Cutaneous abscess of left upper limb (principal); L03.114 Cellulitis of left upper limb; J44.9 Chronic obstructive pulmonary disease, unspecified; G89.29 Other chronic pain; M19.90 Unspecified osteoarthritis, unspecified site; I10 Essential (primary) hypertension; F17.200 Nicotine dependence, unspecified, uncomplicated
CPT/HCPCS: 96372; 99284; J0690; J1885

== ENCOUNTER 2021-01-15 12:54 | Inpatient (IN) | payer MEDICARE ==
[~2021-01-15] VITALS: Ht 160 cm; Wt 58.6 kg
[~2021-01-15 12:54] MED LIST changes: -DOXY100C2 PO; +DOXY100C5 PO
[2021-01-15 13:58] LABS: BASOPHILS % (AUTO) 1 % (0-1); EOSINOPHILS % (AUTO) 1 % (1-7); LYMPHOCYTES % (AUTO) 22 % (22-44); MEAN CORPUSCULAR HEMOGLOBIN 33.7 pg (27.0-34.8); MEAN CORPUSCULAR HGB CONC 33.6 g/dL (32.4-35.8); MEAN PLATELET VOLUME 8.6 fL (7.4-10.4); MONOCYTES % (AUTO) 11 % (2-9); NEUTROPHILS % (AUTO) 66 % (42-75); PLATELET COUNT 244 x10^3/uL (130-400); RED BLOOD COUNT 4.97 x10^6/uL (3.82-5.3); RED CELL DISTRIBUTION WIDTH 16.5 % (9.6-15.2)
[2021-01-15 14:05] LABS: ALANINE AMINOTRANSFERASE 22 U/L (12-78); ALBUMIN 3.4 g/dL (3.4-5.0); ANION GAP 9 mmol/L (5-15); CALCIUM 8.7 mg/dL (8.5-10.1); CHLORIDE 97 mmol/L (98-107); CREATININE 0.72 mg/dL (0.55-1.02)
--- NOTE | 2021-01-15 14:05 | NUR ---
UA sent from lobby now.
[2021-01-15 14:07] LABS: ALKALINE PHOSPHATASE 109 U/L (45-117); BILIRUBIN,TOTAL 0.5 mg/dL (0.2-1.0); TOTAL PROTEIN 8.4 g/dL (6.4-8.2)
[2021-01-15 14:27] LABS: MICROSCOPIC AUTO
[2021-01-15] MEDS ORDERED: HYDROcodone/APAP 5/325 TABLET ONE (20:22)
[2021-01-15] MEDS ORDERED: KETOROLAC 30 MG/1 ML ONE (20:22)
[2021-01-15 20:25] LABS: CARBOXYHEMOGLOBIN 7.9 % (0.0-1.5); METHEMOGLOBIN 0.3 % (0.0-1.4)
[2021-01-15] MEDS ORDERED: KETOROLAC 30 MG/1 ML IVPush ONE (20:30)
[2021-01-15] MEDS ORDERED: HYDROcodone/APAP 5/325 TABLET PO ONE (20:30)
[2021-01-15] MEDS ORDERED: SODIUM CHLORIDE 0.9% 1,000ML IVBOLUS ONE (21:00)
[2021-01-15] MEDS ORDERED: CEFTRIAXONE 1,000 MG in DEXTROSE 5% 50 ML IVPB ONE (21:00)
--- NOTE | 2021-01-15 21:08 | NUR ---
patient placed on non-rebreather at 10L per Tate CLIFTON instruction due to lab results
[2021-01-15 21:48] LABS: TROPONIN I 0.024 ng/mL (0.000-0.045)
[2021-01-15] MEDS ORDERED: MELATONIN 5 MG TABLET PO PRN (22:00)
[2021-01-15] MEDS ORDERED: LORazepam 2 MG/ML, 1ML IV PRN ×2 (22:00)
[2021-01-15] MEDS ORDERED: ONDANSETRON 2MG/ML, 2ML IVPush PRN (22:00)
[2021-01-15] MEDS ORDERED: POLYETHYLENE GLYCOL 17 GM PACKET PO PRN (22:00)
[2021-01-15] MEDS: ACETAMINOPHEN 325 MG TABLET PO SCH (22:00)
[2021-01-15] MEDS ORDERED: LORazepam 0.5MG TABLET PO PRN (22:00)
[2021-01-15] MEDS ORDERED: AZITHROMYCIN 500 MG TABLET PO ONE (22:00)
[2021-01-15] MEDS ORDERED: LABETALOL 5MG/ML, 20ML IVPush PRN (22:00)
[2021-01-15] MEDS ORDERED: LORazepam 1MG TABLET PO PRN (22:00)
[2021-01-15] MEDS ORDERED: FAMOTIDINE 20 MG/2 ML ONE (23:16)
[2021-01-15] MEDS ORDERED: AZITHROMYCIN 250 MG TABLET ONE (23:16)
[2021-01-15] MEDS ORDERED: ACETAMINOPHEN 500 MG TABLET ONE (23:16)
[2021-01-15] MEDS ORDERED: ENOXAPARIN 40 MG/0.4 ML ONE (23:16)
[2021-01-15] MEDS: FAMOTIDINE 20 MG/2 ML IVPush SCH (23:17)
[2021-01-15] MEDS: ENOXAPARIN 40 MG/0.4 ML SQ SCH (23:18)
[2021-01-16] MEDS: ACETAMINOPHEN 325 MG TABLET PO SCH ×4 (00:46→14:00)
[2021-01-16] MEDS ORDERED: ALBUTEROL HFA 90 MCG/SPRAY INH PRN (05:00)
[2021-01-16] MEDS ORDERED: OXYcodone IR 5MG TABLET ONE (05:31)
[2021-01-16] MEDS ORDERED: ACETAMINOPHEN 500 MG TABLET ONE ×3 (05:32→14:52)
[2021-01-16] MEDS: OXYcodone IR 5MG TABLET PO PRN ×4 (05:33→21:43)
[2021-01-16 06:33] LABS: ANION GAP 6 mmol/L (5-15); BASOPHILS % (AUTO) 1 % (0-1); CALCIUM 7.9 mg/dL (8.5-10.1); CHLORIDE 100 mmol/L (98-107); EOSINOPHILS % (AUTO) 3 % (1-7); LYMPHOCYTES % (AUTO) 34 % (22-44); MEAN CORPUSCULAR HEMOGLOBIN 33.4 pg (27.0-34.8); MEAN CORPUSCULAR HGB CONC 33.3 g/dL (32.4-35.8); MEAN PLATELET VOLUME 8.9 fL (7.4-10.4); MONOCYTES % (AUTO) 12 % (2-9); NEUTROPHILS % (AUTO) 50 % (42-75); PLATELET COUNT 208 x10^3/uL (130-400); RED BLOOD COUNT 4.21 x10^6/uL (3.82-5.3); RED CELL DISTRIBUTION WIDTH 16.1 % (9.6-15.2)
[2021-01-16 06:35] LABS: CREATININE 0.66 mg/dL (0.55-1.02)
--- NOTE | 2021-01-16 07:30 | NUR ---
CARE ASSUMED AND PATIENT IN BED, SHE IS ON NRM 10 LITERS AND COMFORTABLE IN HOSP BED. PATIENT HAS HX DEG DISC DISEASE, OSTEOPEROSIS LEFT HIP, PAIN MEDS X4 DAILY FOR LOWER BACK PAIN, HIP PAIN.
--- NOTE | 2021-01-16 08:08 | NUR ---
GOT PATIENT UP TO BATHROOM. SHE HAS NEW OF TISSUES FOR TP AND REQUESTING MORE, LET HER KNOW IF SHE USES ENTIRE BOX I CAN GET HER MORE.
--- NOTE | 2021-01-16 08:18 | NUR ---
PATIENT TOOK OFF CARDIAC MONITORING X3. REFUSING TO REPLACE. PATIENT GOT BACK IN BED. REPLACED ALL MONITORS THAT SHE HAS REMOVED EXCEPT CARDIAC, SHE'S REFUSING
[2021-01-16] MEDS ORDERED: FAMOTIDINE 20 MG/2 ML ONE (08:22)
[2021-01-16] MEDS ORDERED: AZITHROMYCIN 250 MG TABLET ONE (08:22)
--- NOTE | 2021-01-16 08:58 | NUR ---
PATIENT FIGETY AND WANTS TO GET UP AND WALK AROUND ROOM ALOT. ENCOURAGING HER TO STAY IN BED FOR FALL RISK AND TO REST. REPOSITIONED HER IN BED AGAIN. DIET TRAY ORDERED.
[2021-01-16] MEDS: FAMOTIDINE 20 MG/2 ML IVPush SCH ×2 (09:20→21:42)
[2021-01-16] MEDS: AZITHROMYCIN 500 MG TABLET PO SCH (09:20)
[2021-01-16] MEDS ORDERED: OXYcodone/APAP 5/325MG TABLET ONE (10:22)
--- NOTE | 2021-01-16 10:36 | NUR ---
got patient diet tray as she requested. she hated food and said to take it away. gave her pain medication as requested. patient continues to remove monitoring devices making it difficult to care for her. replaced.
[2021-01-16] MEDS ORDERED: CEFTRIAXONE 1,000 MG in DEXTROSE 5% 50 ML IVPB SCH (11:30)
[2021-01-16] MEDS ORDERED: POTASSIUM CHLORIDE 10% 40 MEQ/30 ML UDC PO ONE (11:30)
--- NOTE | 2021-01-16 11:47 | NUR ---
patient states hospitalist came by and mentioned she can take oxygen off. when checked on patient once alarming she is without oxygen and 84% on room air. asked her to replace oxygen. put oxygen back on. quickly went up.
[2021-01-16] MEDS ORDERED: POTASSIUM CHLORIDE 20 MEQ PACKET ONE (11:53)
--- NOTE | 2021-01-16 12:24 | NUR ---
SWITCHED PATIENT FROM NRM TO 4l NC. TOLERATING WELL. DESAT'S WITH OXYGEN OFF
--- NOTE | 2021-01-16 12:43 | NUR ---
GOT PATIENT DIET TRAY, ATE ALL
--- NOTE | 2021-01-16 13:19 | NUR ---
TALKED TO VERÓNICA CLIFTON AND SHE AGREED TO CHANGE PATIENT STATUS TO MED SURG. SHE WILL ORDER [facility]
[2021-01-16] MEDS ORDERED: POTASSIUM CHLORIDE 20 MEQ TAB.ER.PRT PO ONE (15:00)
[2021-01-16] MEDS ORDERED: BUPR600F2 EXT (15:51)
[2021-01-16] MEDS ORDERED: TRAZ-96 PO (15:53)
[2021-01-16] MEDS: ACETAMINOPHEN 500 MG TABLET PO SCH ×2 (18:08→21:42)
[2021-01-16 20:15] VITALS: BP 102/64
[2021-01-16] MEDS: ENOXAPARIN 40 MG/0.4 ML SQ SCH (21:42)
[2021-01-17 02:05] VITALS: BP 137/83
[2021-01-17] MEDS: OXYcodone IR 5MG TABLET PO PRN (02:38)
[2021-01-17] MEDS: ACETAMINOPHEN 500 MG TABLET PO SCH (02:38)
[2021-01-17] MEDS ORDERED: TRAZODONE 50MG TABLET PO PRN (03:00)
[2021-01-17 05:31] LABS: BASOPHILS % (AUTO) 1 % (0-1); EOSINOPHILS % (AUTO) 2 % (1-7); LYMPHOCYTES % (AUTO) 31 % (22-44); MEAN CORPUSCULAR HEMOGLOBIN 33.6 pg (27.0-34.8); MEAN CORPUSCULAR HGB CONC 33.3 g/dL (32.4-35.8); MEAN PLATELET VOLUME 8.9 fL (7.4-10.4); MONOCYTES % (AUTO) 17 % (2-9); NEUTROPHILS % (AUTO) 50 % (42-75); PLATELET COUNT 228 x10^3/uL (130-400); RED BLOOD COUNT 4.55 x10^6/uL (3.82-5.3); RED CELL DISTRIBUTION WIDTH 16.3 % (9.6-15.2)
[2021-01-17 05:50] LABS: ANION GAP 6 mmol/L (5-15); CALCIUM 8.4 mg/dL (8.5-10.1); CHLORIDE 104 mmol/L (98-107); CREATININE 0.47 mg/dL (0.55-1.02)
[2021-01-17 08:03] VITALS: BP 126/85
[2021-01-17] MEDS ORDERED: VENLAFAXINE 37.5MG TABLET ONE (08:57)
[2021-01-17] MEDS ORDERED: VENLAFAXINE 75MG TABLET PO SCH (09:00)
[2021-01-17] MEDS: GABAPENTIN 300 MG CAPSULE PO SCH ×2 (09:08→14:59)
[2021-01-17] MEDS: HYDROcodone/APAP 10/325 MG TABLET PO PRN ×2 (09:08→14:59)
[2021-01-17] MEDS: FAMOTIDINE 20 MG/2 ML IVPush SCH (09:08)
[2021-01-17] MEDS: AZITHROMYCIN 500 MG TABLET PO SCH (09:08)
[2021-01-17] MEDS ORDERED: AZIT500T10 PO (11:29)
[2021-01-17] MEDS ORDERED: CEFD300C37 PO (11:29)
[2021-01-17] MEDS ORDERED: PRED20TA PO (11:29)
[2021-01-17 12:44] VITALS: BP 143/94
[2021-01-17] MEDS ORDERED: CEFTRIAXONE 1,000 MG in DEXTROSE 5% 50 ML IVPB SCH (13:00)
[2021-01-17 17:40] VITALS: BP 118/78
== END 2021-01-17 17:52 | disposition home or self-care (01) | DRG 189 ==
LOC: ED 17:29 → EDIP 21:23 → 4NE 01-16 14:35
PROVIDERS: ADMIT Internal Medicine; ATTEND Family Medicine
DX: J96.21 Acute and chronic respiratory failure with hypoxia (principal); J44.1 Chronic obstructive pulmonary disease with (acute) exacerbation; N10 Acute pyelonephritis; F17.200 Nicotine dependence, unspecified, uncomplicated; D75.89 Other specified diseases of blood and blood-forming organs; Z20.822 Contact with and (suspected) exposure to COVID-19; G62.9 Polyneuropathy, unspecified; G89.29 Other chronic pain; I10 Essential (primary) hypertension; M81.0 Age-related osteoporosis without current pathological fracture; M54.30 Sciatica, unspecified side; Z66 Do not resuscitate; F10.10 Alcohol abuse, uncomplicated; R51.9 Headache, unspecified; Z71.6 Tobacco abuse counseling; Z88.8 Allergy status to other drugs, medicaments and biological substances
CPT/HCPCS: 36415; 36600; 71045; 76770; 80048; 80053; 81001; 82375; 82803; 83050; 84100; 84484; 85025; 85379; 87077; 87086; 87186; 93005; 99285; G0378; J0696; J1650; J1885; U0005; J7030; J7512; U0003